=== PATIENT | male | born 1980 | race Caucasian/White ===

== ENCOUNTER 2017-02-14 11:57 | Emergency (ER) | payer BC, SELFPAY | END 2017-02-14 14:14 | disposition home or self-care (01) | PROVIDERS: Emergency Provider Nurse Practitioner Family; Family Provider Nurse Practitioner Family; Visit Provider Nurse Practitioner Family | DX: R19.7 Diarrhea, unspecified (principal); F17.210 Nicotine dependence, cigarettes, uncomplicated; I10 Essential (primary) hypertension | CPT/HCPCS: 36415; 76700; 80053; 85025; 86704; 86708; 86803; 87340; 87507; 99201 ==

== ENCOUNTER → 2018-04-19 14:25 | Outpatient (CLI) | payer BC, SELFPAY ==
[2018-04-19 15:25] LABS: Basophils % 0.4 % (0.1-2.0); Eosinophils # 0.3 K/mm3 (0.0-0.4); Eosinophils % 2.8 % (0.1-12.0); Hematocrit 49.8 % (42.0-52.0); Hemoglobin 17.3 g/dL (14.1-18.0); Lymphocytes # 2.1 K/mm3 (0.7-4.5); Lymphocytes % 20.5 % (10-50); Mean Corpuscular HGB Conc 34.6 g/dL (31.8-35.4); Mean Corpuscular Hemoglobin 30.1 pg (27.0-31.2); Mean Corpuscular Volume 86.8 fl (80-94); Mean Platelet Volume 8.9 fl (7.4-10.4); Monocytes # 0.7 K/mm3 (0.1-1.0); Monocytes % 6.5 % (1.7-9.3); Neutrophils # 7.1 K/mm3 (1.8-7.8); Neutrophils % 69.8 % (37.0-80.0); Platelet Count 272 K/mm3 (142-424); Red Blood Count 5.74 M/mm3 (4.60-6.20); Red Cell Distribution Width 12.6 % (11.5-17.5); White Blood Count 10.1 K/mm3 (4.8-10.8)
[2018-04-19 15:46] LABS: Alanine Aminotransferase 45 U/L (12-78); Albumin Level 3.9 gm/dL (3.4-5.0); Albumin/Globulin Ratio 1.1 (1.1-1.8); Alkaline Phosphatase 118 U/L (46-116); Anion Gap 14.2 mEq/L (5-15); Aspartate Amino Transferase 16 U/L (15-37); Bilirubin,Total 0.3 mg/dL (0.2-1.0); Blood Urea Nitrogen 12 mg/dL (7-18); Calcium 8.9 mg/dL (8.5-10.1); Carbon Dioxide 26 mmol/L (21.0-32.0); Chloride 105 mmol/L (98-107); Cholesterol 203 mg/dL (140-200); Estimated Glomerular Filt Rate 85 ml/min (>60); Free Thyroxine Index 3.2 ug/dL (5.93-13.13); GFR (African American) 102 ML/MIN (>60); Globulin 3.4 gm/dl (1.3-3.2); Glucose 109 mg/dL (74-106); HDL Cholesterol 29 mg/dL (27-67); Phosphorous 3.3 mg/dL (2.4-4.9); Potassium 4.2 mmoL/L (3.5-5.1); Sodium 141 mmol/L (136-145); T4 (Thyroxine) 9.2 ug/dl (4.7-13.3); Thyroid Stimulating Hormone 2.12 uIU/ml (0.358-3.740); Total Protein,Serum 7.3 gm/dL (6.4-8.2); Triiodothryronine (T3) Uptake 35 % (31-39)
[2018-04-19 15:49] LABS: Triglycerides 470 mg/dL (30-200)
[2018-04-19 16:11] LABS: Hemoglobin A1C 5.9 % (0.0-7.0)
[2018-04-21 10:53] LABS: Vitamin D 25 Hydroxy 11.8 ng/mL (30.0-100.0)
== END ==
PROVIDERS: Visit Provider Nurse Practitioner Family
DX: I10 Essential (primary) hypertension (principal); R53.83 Other fatigue
CPT/HCPCS: 80053; 80061; 80069; 82652; 83036; 84436; 84443; 84479; 85025

== ENCOUNTER → 2018-05-15 09:33 | Outpatient (CLI) | payer BC, SELFPAY ==
--- NOTE | 2018-05-15 09:35 | CA_ITS ---
PROCEDURE: 2-D M-mode and color Doppler study INDICATIONS FOR THE TEST: Chest pain X COPD Heart Murmur Tobacco SmokingX Palpitations Fatigue Syncope Edema HypertensionXDiabetes Mellitus Rheumatic Fever SOBXDOE ObesityXHyperlipidemiaX Family History HD Additional History ABN EKG,TACHYCARDIA PATIENT INFORMATION HEIGHT: 69 WEIGHT:271 GENDER: Male B/P:147/87 2-D/M-MODE INTERPRETATION: 2-D MEASUREMENTS OBSERVED VALUES IN CMS Right Ventricular Dimension (RVDd) 1.8 Interventricular Septum (Thickness)(IVsd) 1.0 Left Ventricular Internal Dimensions(LVIDd) 5.2 Left Ventricular Posterior Wall (Thickness)(LVPWd) 1.2 Aortic Root 3.4 Aortic Cusp Separation 2.1 Left Atrial Dimensions (LAD) 3.2 2D 1. Left atrium is normal size, left ventricle is normal size, there is no concentric left ventricular hypertrophy, visually estimated ejection fraction of 55% with no regional wall motion abnormality. 2. The right atrium and right ventricle are normal size and contractility. 3. The aortic, mitral and tricuspid valve are grossly normal. 4. The pulmonic valve is poorly visualized. 5. No significant pericardial effusion noted. DOPPLER INTERROGATION: Doppler interrogation of the aortic, mitral and tricuspid valvular presence of mild mitral and tricuspid regurgitation, tricuspid regurgitation jet velocity is inadequate for calculation of the right ventricular systolic pressure, diastolic parameters are within normal range. CONCLUSION: 1. Normal left ventricular size, preserved left ventricular systolic function, visually estimated ejection fraction of 55% with no regional wall motion abnormality, diastolic parameters are within normal range. 2. Mild mitral and tricuspid regurgitation 3. No significant pericardial effusion noted.
== END ==
PROVIDERS: PCP Nurse Practitioner Family; Visit Provider Internal Medicine
DX: R94.31 Abnormal electrocardiogram [ECG] [EKG] (principal); R07.9 Chest pain, unspecified; R06.02 Shortness of breath; E78.5 Hyperlipidemia, unspecified; R05 Cough; I10 Essential (primary) hypertension; Z82.49 Family history of ischemic heart disease and other diseases of the circulatory system
CPT/HCPCS: 93017; 93306

== ENCOUNTER → 2018-06-21 07:10 | Outpatient (CLI) | payer BC, SELFPAY ==
--- NOTE | 2018-06-21 07:12 | NM_ITS ---
SPECT MYOCARDIAL PERFUSION SCAN, REST AND STRESS: EXERCISE STRESS: [facility] REVIEW QGS EF AND WALL MOTION EVALUATION: QPS - PERFUSION EVALUATION: HISTORY: Chest pain, HTN, Abnormal EKG, Abnormal GXT, Tobacco use PROCEDURE: Rest imaging performed after administration of10.44 millicuries Tc MIBI. Dose administered at7:25 a.m., with imaging thereafter. Stress imaging was then performed [id number] minutes of exercise stress. The patient achieved a heart [id number] with projected heart rate of156 . Resting BP137/83 with stress 218/80. At maximum exercise stress,32.9 millicuries Tc MIBI administered at9:10 a.m. with [id number] minutes thereafter. FINDINGS: Perfusion Evaluation: The single slice spect images as well as the [facility] bull's-eye data summary were reviewed. Wall Motion and Ejection Fraction Evaluation: Gated SPECT review and analysis used to evaluate these features. There is a 51 % left ventricular ejection fraction. There seems to be good wall motion Uniform myocardial activity at both stress and rest IMPRESSION: No scintigraphic evidence of exercise-induced myocardial ischemia with normal ejection fraction and normal wall motion
--- NOTE | 2018-06-21 08:11 | HMH.ITSHM ---
Current Home Medications as stated by this patient Byron Figueroa or group sales representative. []ATORVASTATIN LOSARTAN ASA CARVEDILOL
== END ==
PROVIDERS: PCP Nurse Practitioner Family; Visit Provider Internal Medicine
DX: I10 Essential (primary) hypertension (principal); R06.02 Shortness of breath; R94.39 Abnormal result of other cardiovascular function study
CPT/HCPCS: 78452; 93017; A9502

== ENCOUNTER → 2018-12-18 12:05 | Outpatient (CLI) | payer BC, SELFPAY ==
[2018-12-18 12:08] LABS: Microscopic, Urine URINE MICROSCOPIC (MICROSCOPIC)
[2018-12-18 12:28] LABS: Basophils % 0.3 % (0.1-2.0); Eosinophils # 0.3 K/mm3 (0.0-0.4); Eosinophils % 2.9 % (0.1-12.0); Hematocrit 50.7 % (42.0-52.0); Hemoglobin 16.8 g/dL (14.1-18.0); Lymphocytes # 2.3 K/mm3 (0.7-4.5); Lymphocytes % 24.3 % (10-50); Mean Corpuscular Hemoglobin 29.6 pg (27.0-31.2); Mean Corpuscular Volume 89.5 fl (80-94); Mean Platelet Volume 8.6 fl (7.4-10.4); Monocytes # 0.6 K/mm3 (0.1-1.0); Monocytes % 6.9 % (1.7-9.3); Neutrophils # 6.1 K/mm3 (1.8-7.8); Neutrophils % 65.6 % (37.0-80.0); Platelet Count 284 K/mm3 (142-424); Red Blood Count 5.67 M/mm3 (4.60-6.20); Red Cell Distribution Width 12.6 % (11.5-17.5); White Blood Count 9.3 K/mm3 (4.8-10.8)
[2018-12-18 12:34] LABS: Appearance,Urine CLEAR (Clear); Bilirubin,Urine Negative (Negative); Blood, Urine TRACE-I (Negative); Color,Urine YELLOW (Yellow); Glucose,Urine (UA) Negative (Negative); Ketones,Urine Negative (Negative); Leukocyte Esterase,Urine Negative (Negative); Nitrate,Urine Negative (Negative); PH,Urine 5.5 (5.0-8.5); Protein,Urine Negative (Negative); Specific Gravity, Urine 1.025 (1.005-1.030); Urobilinogen,Urine 0.2 EU/dl (0.2)
[2018-12-18 13:04] LABS: Squamous Epithelial Cell,Urine Occasional #/hpf (0-5); WBC,Urine Occasional #/hpf (0-3)
[2018-12-18 13:39] LABS: Anion Gap 13.5 mEq/L (5-15); Blood Urea Nitrogen 15 mg/dL (7-18); Calcium 8.9 mg/dL (8.5-10.1); Carbon Dioxide 28 mmol/L (21.0-32.0); Chloride 105 mmol/L (98-107); Estimated Glomerular Filt Rate 84 ml/min (>60); GFR (African American) 102 ML/MIN (>60); Glucose 110 mg/dL (74-106); Potassium 4.5 mmoL/L (3.5-5.1); Sodium 142 mmol/L (136-145)
== END ==
PROVIDERS: Visit Provider Surgery
DX: K43.2 Incisional hernia without obstruction or gangrene (principal)
CPT/HCPCS: 36415; 80048; 81001; 85025

== ENCOUNTER 2019-10-15 21:09 | Emergency (ER) | payer BC, SELFPAY ==
[2019-10-15 21:18] VITALS: BP 193/101; PULSE 94; RESP 18; TEMP 37.1; O2SAT 97; BMI 39.4
--- NOTE | 2019-10-15 21:26 | CT_ITS ---
PROCEDURE: CT ABDOMEN PELVIS W CON CLINICAL INDICATION: left sided abd pain Left-sided abdominal pain COMPARISON: CT CT ABDOMEN PELVIS W CON from 12/05/2018 TECHNIQUE: IV Contrast: 75ML OPTIRAY 350 Oral Contrast None Axial images obtained with sagittal and coronal reformats. All CT scans at the facility use one or more dose reduction, viz: automated exposure control, ma/kV adjustment per patient size (including targeted exams where dose is matched to indication, i.e. head), or iterative reconstruction technique. FINDINGS: LOWER THORAX: No acute finding ABDOMEN & PELVIS: The liver, spleen adrenal glands pancreas, and kidneys have an unremarkable appearance. No renal or ureteral calculi. No intestinal obstruction or free air. Mild amount of retained colonic feces. No evidence of appendicitis. There are postsurgical changes with an anastomosis at the sigmoid colon region.. Postsurgical changes of the anterior abdominal wall. There are few scattered colonic diverticula but no evidence of diverticulitis. No acute bony findings. There is a lucent lesion involving the ilium on the right at approximately 13 mm not significantly changed. Intramedullary kisha is present in the right femur. There are mild osteoarthritic changes of the hips IMPRESSION: 1. No acute finding. 2. Mild amount of retained colonic feces with postsurgical changes of the sigmoid colon and a few scattered diverticula but no evidence of diverticulitis. Dictated by: Rui White MD 10/16/2019 06:30 Rui White MD in [place] 10/16/2019 06:30
--- NOTE | 2019-10-15 21:26 | PC.NURSE ---
pt consumed oral contrast. rad notified
[2019-10-15 21:34] LABS: Chloride 106 mmol/L (98-107)
[2019-10-15 21:35] LABS: Basophils % 0.4 % (0.1-2.0); Eosinophils # 0.3 K/mm3 (0.0-0.4); Eosinophils % 2.9 % (0.1-12.0); Hematocrit 48.7 % (42.0-52.0); Hemoglobin 16.8 g/dL (14.1-18.0); Lymphocytes # 3.4 K/mm3 (0.7-4.5); Lymphocytes % 29.9 % (10-50); Mean Corpuscular HGB Conc 34.4 g/dL (31.8-35.4); Mean Corpuscular Hemoglobin 30.9 pg (27.0-31.2); Mean Platelet Volume 8.2 fl (7.4-10.4); Microscopic, Urine URINE MICROSCOPIC (MICROSCOPIC); Monocytes # 0.6 K/mm3 (0.1-1.0); Monocytes % 5.1 % (1.7-9.3); Neutrophils % 61.8 % (37.0-80.0); Platelet Count 263 K/mm3 (142-424); Potassium 4.1 mmoL/L (3.5-5.1); Red Blood Count 5.42 M/mm3 (4.60-6.20); Red Cell Distribution Width 12.9 % (11.5-17.5); Sodium 142 mmol/L (136-145); White Blood Count 11.4 K/mm3 (4.8-10.8)
[2019-10-15 21:37] LABS: Alanine Aminotransferase 48 U/L (12-78); Amylase 60 U/L (30-110); Anion Gap 13.1 mEq/L (5-15); Aspartate Amino Transferase 36 U/L (17-59); Blood Urea Nitrogen 15 mg/dl (9-20); Carbon Dioxide 27 mmol/L (22.0-30.0); Creatinine Clearance Estimated 177 mL/min (50-200); Estimated Glomerular Filt Rate 84 ml/min (>60); GFR (African American) 101 ML/MIN (>60)
[2019-10-15 21:38] LABS: Albumin Level 4.3 g/dl (3.5-5.0); Albumin/Globulin Ratio 1.3 (1.1-1.8); Alkaline Phosphatase 115 U/L (38-126); Bilirubin,Total 0.4 mg/dl (0.2-1.3); Calcium 9.5 mg/dl (8.4-10.2); Globulin 3.3 g/dL (1.3-3.2); Glucose 103 mg/dl (74-100); Lipase 99 U/L (23-300); Total Protein,Serum 7.6 g/dl (6.3-8.2)
[2019-10-15 21:42] LABS: Appearance,Urine CLEAR (Clear); Bilirubin,Urine Negative (Negative); Blood, Urine TRACE-I (Negative); Color,Urine YELLOW (Yellow); Glucose,Urine (UA) Negative (Negative); Ketones,Urine Negative (Negative); Leukocyte Esterase,Urine Negative (Negative); Nitrate,Urine Negative (Negative); Protein,Urine Negative (Negative); Specific Gravity, Urine 1.025 (1.005-1.030); Urobilinogen,Urine 0.2 EU/dl (0.2)
[2019-10-15 21:54] LABS: Squamous Epithelial Cell,Urine Occasional #/hpf (0-5); WBC,Urine Occasional #/hpf (0-3)
--- NOTE | 2019-10-15 23:14 | HMH.EDNVD ---
ED Disposition Clinical Impression: Abdominal pain Qualifiers: Abdominal location: left upper quadrant Qualified Code(s): R10.12 - Left upper quadrant pain Disposition: Home, Self-Care Condition on Discharge: Good Instructions: DI for Acute Abdomen Additional Instructions: call pcp for follow up Referrals: Ashish Figueroa APRN [Primary Care Provider] - - Critical Care Critical Care Time: No Attestation: On 10/15/19, the high probability of a clinically significant, sudden or life threatening deterioration of the following system(s) required my full and direct attention, intervention and personal management. The time I documented below is in addition to time spent performing reported procedures but includes the following listed in this critical care notation. Medical Decision Making - Medical Records Medical records reviewed: Yes: I reviewed the patient's medical records. - Sam Inquiry Pt receiving controlled substance: No Vital Signs: 10/15/19 21:18 10/15/19 23:30 Temperature 98.8 F Temperature Source Oral Pulse Rate [Left] 94 H 77 Respiratory Rate 18 18 Blood Pressure [Right Arm] 193/101 H 165/100 H Blood Pressure Mean [Right Arm] 131 121 Blood Pressure Source [Right Arm] Automatic Cuff Blood Pressure Position [Right Arm] Sitting Sitting 02 Sat by Pulse Oximetry 97 97 Oxygen Delivery Method Room Air Room Air - Lab Data Lab results reviewed: Yes: I reviewed the patient's lab results. Lab Results 10/15/19 21:23: WBC 11.4 H, RBC 5.42, Hgb 16.8, Hct 48.7, MCV 90.0, MCH 30.9, MCHC 34.4, RDW 12.9, Plt Count 263, MPV 8.2, Neut % (Auto) 61.8, Lymph % (Auto) 29.9, Fannin % (Auto) 5.1, Eos % (Auto) 2.9, Baso % (Auto) 0.4, Neut # (Auto) 7.0, Lymph # (Auto) 3.4, Fannin # (Auto) 0.6, Eos # (Auto) 0.3, Baso # (Auto) 0.0 10/15/19 21:23: Sodium 142, Potassium 4.1, Chloride 106, Carbon Dioxide 27, Anion Gap 13.1, BUN 15, Creatinine 1.00, Estimated Creat Clear 177, Estimated GFR 84, Est GFR ( Amer) 101, Glucose 103 H, Calcium 9.5, Total Bilirubin 0.4, AST 36, ALT 48, Alkaline Phosphatase 115, Total Protein 7.6, Albumin 4.3, Globulin 3.3 H, Albumin/Globulin Ratio 1.3, Amylase 60, Lipase 99 10/15/19 21:23: Urine Color Yellow, Urine Appearance Clear, Urine pH 6.0, Ur Specific [place] 1.025, Urine Protein Negative, Urine Glucose (UA) Negative, Urine Ketones Negative, Urine Blood Trace-i, Urine Nitrate Negative, Urine Bilirubin Negative, Urine Urobilinogen 0.2, Ur Leukocyte Esterase Negative, Urine WBC Occasional, Ur Squamous Epith Cells Occasional Result diagrams: 10/15/19 21:23 10/15/19 21:23 Orders (Tests/Meds): ED MEDICATIONS Generic Name Dose Route Start Last Admin Trade Name Freq PRN Reason Stop Dose Admin Sodium Chloride 1,000 mls @ 999 mls/hr 10/15/19 21:30 10/15/19 21:29 Sod Chlor 0.9% 1000ml Bag IV 10/15/19 22:30 999 mls/hr .Q1H1M GRACY Administration Discontinued Medications Generic Name Dose Route Start Last Admin Trade Name Freq PRN Reason Stop Dose Admin Diatrizoate Meglum/Diatrizoate Sod 30 ml 10/15/19 21:25 10/15/19 21:29 Gastrografin 66%-10% 30ml PO 10/15/19 21:26 30 ml ONCE ONE Administration Ioversol 75 ml 10/15/19 23:09 10/15/19 23:09 Rad-Optiray 350 100ml Vial IV 10/15/19 23:10 75 ml ONCE ONE Administration Protocol Ketorolac Tromethamine 30 mg 10/15/19 21:28 10/15/19 21:29 Toradol 30mg/Ml Vial IV 10/15/19 21:29 30 mg ONCE ONE Administration Ondansetron HCl 4 mg 10/15/19 21:28 10/15/19 21:29 Zofran 4mg/2ml Vial IV 10/15/19 21:29 4 mg ONCE ONE Administration Sodium Chloride 10 ml 10/15/19 23:09 10/15/19 23:09 Rad-Saline Flush 10ml Syringe IV 10/15/19 23:10 10 ml ONCE ONE Administration ORDERS Category Date Time Status CT abdomen pelvis w con Stat Cat Scan 10/15/19 21:26 Taken - CT Data CT Scan: Abdomen, Pelvis Time Received: 23:[address] Reviewed: Yes: I have viewed the radiologist's interpr
[2019-10-15 23:30] VITALS: BP 165/100; PULSE 77; RESP 18; O2SAT 97
[2019-10-15 23:45] VITALS: BP 183/106; PULSE 77; RESP 17; TEMP 37.1; O2SAT 95
== END 2019-10-15 23:50 | disposition home or self-care (01) ==
PROVIDERS: Emergency Provider Emergency Medicine; PCP Nurse Practitioner Family
DX: R10.12 Left upper quadrant pain (principal); E78.5 Hyperlipidemia, unspecified; I10 Essential (primary) hypertension; F17.210 Nicotine dependence, cigarettes, uncomplicated; Z79.899 Other long term (current) drug therapy
CPT/HCPCS: 74177; 80053; 81001; 82150; 83690; 85025; 96365; 96375; 99283; J2405; Q9967

== ENCOUNTER → 2020-02-20 13:25 | Outpatient (CLI) | payer BC, SELFPAY ==
--- NOTE | 2020-02-20 13:25 | CA_ITS ---
APPROVED REPORT EXAM: Comprehensive 2D, Doppler, and color-flow Echocardiogram Vegetable Cook: Vanesa Madera CRT Ht: 5 ft 10 in Wt: 290lbs BSA: 2.44 BP: 140/90 mmHg Indications: CP, smoker, HTN, SOB, obesity, hyperlipidemia, ABN EKG, tachycardia 2D Dimensions LVOT 2.29 cm (M/F) 1.5-2.5 M-Mode Dimensions RVDd 2.89 cm (0.9-2.6) LA Diam 3.59 cm (1.9-4.0) LVDd 3.42 cm (3.5-5.7) Ao Diam 3.39 cm (2.0-3.7) LVDs 2.49 cm (3.5-5.7) IVSd 1.17 cm (0.6-1.1) PWd 0.88 cm (0.6-1.1) EF (Teich) 54.10% FS 27.20% EDV (Teich) 48.10 mL ESV (Teich) 22.10 mL LV Diastology E Decel Time 177.00 (160-240 msec) E/A Ratio 0.8 MED E' 9.70 (< 7 cm/sec) E'/MED E' Ratio 7.07 (>14) LAT E' 9.90 (<10 cm/sec) E/LAT E' Ratio 6.93 (>14) Mitral Valve MV E Max Dago. 69.00 (40-130 cm/s) MV A Velocity 85.00 (40-130 cm/s) E/A Ratio 0.80 MV Decel. Time 177.00 (160-240 ms) MV PHT 52.00 ms Left Ventricle Left atrium is mildly enlarged, left ventricle is normal size, mild concentric left ventricular hypertrophy, visually estimated ejection fraction 55% with no regional wall motion abnormality, grade 1 diastolic dysfunction seen without tissue Doppler evidence of raise left atrial pressure. Right Ventricle Right atrium and right ventricle are mildly enlarged with normal contractility. Aortic Valve Aortic valve is minimally thickened and fibrosed, there is no aortic stenosis or aortic insufficiency. Mitral Valve Mitral valve is grossly normal, there is no mitral stenosis, there is mild mitral regurgitation. Tricuspid Valve Tricuspid valve is grossly normal, there is mild tricuspid regurgitation, tricuspid regurgitation jet velocity is inadequate for calculation of the right ventricular systolic pressure. Pulmonic Valve Pulmonic valve is poorly visualized. Great Vessels Aortic root is normal size. Pericardium No significant pericardial effusion noted. Conclusion 1. Mild biatrial enlargement, normal left ventricular size, mild concentric left ventricular hypertrophy, visually estimated ejection fraction 55% with no regional wall motion abnormality, grade 1 diastolic dysfunction seen without tissue Doppler evidence of raise left atrial pressure. 2. Mildly enlarged right ventricle with normal contractility. 3. Mild mitral and tricuspid regurgitation. 4. No significant pericardial effusion noted. Electronically signed by : Mamadou Reynoso, 02/21/2020 12:50:24
== END ==
PROVIDERS: PCP Nurse Practitioner Family; Visit Provider Physician Assistant
DX: R06.02 Shortness of breath (principal); R00.0 Tachycardia, unspecified; R94.31 Abnormal electrocardiogram [ECG] [EKG]; E78.2 Mixed hyperlipidemia; I10 Essential (primary) hypertension; Z72.0 Tobacco use
CPT/HCPCS: 93306

== ENCOUNTER → 2020-03-08 10:00 | Outpatient (CLI) | payer BC, SELFPAY ==
[2020-03-08 11:09] LABS: Chloride 104 mmol/L (98-107); Sodium 140 mmol/L (136-145)
[2020-03-08 11:12] LABS: Blood Urea Nitrogen 18 mg/dl (9-20); Estimated Glomerular Filt Rate 94 ml/min (>60); GFR (African American) 114 ML/MIN (>60)
[2020-03-08 11:13] LABS: Carbon Dioxide 28 mmol/L (22.0-30.0); Glucose 109 mg/dl (74-100)
== END ==
PROVIDERS: Visit Provider Physician Assistant
DX: R06.02 Shortness of breath (principal); R94.31 Abnormal electrocardiogram [ECG] [EKG]; I10 Essential (primary) hypertension; E78.2 Mixed hyperlipidemia; Z72.0 Tobacco use
CPT/HCPCS: 36415; 80048

== ENCOUNTER → 2020-03-20 17:23 | Outpatient (CLI) | payer BC, SELFPAY ==
[2020-03-20 18:37] LABS: Alanine Aminotransferase 45 U/L (12-78); Albumin Level 4.2 g/dl (3.5-5.0); Albumin/Globulin Ratio 1.4 (1.1-1.8); Alkaline Phosphatase 100 U/L (38-126); Anion Gap 13.1 mEq/L (5-15); Aspartate Amino Transferase 34 U/L (17-59); Basophils # 0.1 K/mm3 (0-0.2); Basophils % 0.5 % (0.1-2.0); Bilirubin,Total 0.5 mg/dl (0.2-1.3); Blood Urea Nitrogen 13 mg/dl (9-20); Calcium 9.4 mg/dl (8.4-10.2); Carbon Dioxide 25 mmol/L (22.0-30.0); Chloride 107 mmol/L (98-107); Chol/HDL Ratio 7.3 (1-3.5); Cholesterol 211 mg/dl (140-200); Eosinophils # 0.4 K/mm3 (0.0-0.4); Eosinophils % 4.1 % (0.1-12.0); Estimated Glomerular Filt Rate 94 ml/min (>60); GFR (African American) 114 ML/MIN (>60); Globulin 2.9 g/dL (1.3-3.2); Glucose 131 mg/dl (74-100); HDL Cholesterol 29 mg/dl (40-60); Hematocrit 46.1 % (42.0-52.0); Hemoglobin 15.2 g/dL (14.1-18.0); Lymphocytes # 2.3 K/mm3 (0.7-4.5); Lymphocytes % 27.4 % (10-50); Mean Corpuscular HGB Conc 32.9 g/dL (31.8-35.4); Mean Corpuscular Hemoglobin 29.5 pg (27.0-31.2); Mean Corpuscular Volume 89.6 fl (80-94); Mean Platelet Volume 8.8 fl (7.4-10.4); Monocytes # 0.5 K/mm3 (0.1-1.0); Monocytes % 5.7 % (1.7-9.3); Neutrophils # 5.3 K/mm3 (1.8-7.8); Neutrophils % 62.3 % (37.0-80.0); Platelet Count 263 K/mm3 (142-424); Potassium 4.1 mmoL/L (3.5-5.1); Red Blood Count 5.14 M/mm3 (4.60-6.20); Red Cell Distribution Width 13.2 % (11.5-17.5); Sodium 141 mmol/L (136-145); Total Protein,Serum 7.1 g/dl (6.3-8.2); White Blood Count 8.5 K/mm3 (4.8-10.8)
[2020-03-20 18:49] LABS: Direct LDL Cholesterol 41.22 mg/dL (100-129)
[2020-03-20 18:52] LABS: Triglycerides 837 mg/dl (30-150)
[2020-03-20 18:54] LABS: 25-OH Vitamin D, Total 13.2 ng/mL (30-100)
[2020-03-20 18:55] LABS: T4 (Thyroxine) 8.4 ug/dl (5.53-11.0)
[2020-03-20 19:06] LABS: Creatinine,Urine Random 249 mg/dL (Not Estab.)
[2020-03-20 19:09] LABS: Thyroid Stimulating Hormone 0.93 uIU/mL (0.465-4.68)
[2020-03-20 19:11] LABS: Microalbumin/Creatinine Ratio 3.4
[2020-03-20 19:22] LABS: Hemoglobin A1C 5.9 % (4.0-6.0)
== END ==
PROVIDERS: Visit Provider Nurse Practitioner Family
DX: E11.9 Type 2 diabetes mellitus without complications (principal); E78.5 Hyperlipidemia, unspecified; I10 Essential (primary) hypertension; E55.9 Vitamin D deficiency, unspecified; Z79.899 Other long term (current) drug therapy
CPT/HCPCS: 80053; 80061; 82043; 82306; 82570; 83036; 84436; 84443; 85025

== ENCOUNTER → 2020-04-30 14:15 | Outpatient (CLI) | payer BC, SELFPAY ==
[2020-04-30 18:20] LABS: Coronavirus 19 IgG Antibody Negative (Negative); Coronavirus 19 IgM Antibody Negative (Negative)
== END ==
PROVIDERS: Visit Provider Nurse Practitioner Family
DX: Z01.818 Encounter for other preprocedural examination (principal); Z20.822 Contact with and (suspected) exposure to COVID-19
CPT/HCPCS: 36415; 86328

== ENCOUNTER → 2020-05-01 20:11 | Outpatient (CLI) | payer BC, SELFPAY | PROVIDERS: PCP Nurse Practitioner Family; Visit Provider Nurse Practitioner Family | DX: G47.33 Obstructive sleep apnea (adult) (pediatric) (principal); R09.02 Hypoxemia; I10 Essential (primary) hypertension; R06.83 Snoring; E66.9 Obesity, unspecified | CPT/HCPCS: 95810 ==

== ENCOUNTER → 2020-06-03 10:21 | Outpatient (POV) | payer BC, SELFPAY | PROVIDERS: Visit Provider Otolaryngology | DX: Z00.00 Encounter for general adult medical examination without abnormal findings (principal) ==

== ENCOUNTER 2020-06-22 18:48 | Emergency (ER) | payer BC, SELFPAY ==
[2020-06-22 18:49] VITALS: BP 153/88; PULSE 99; RESP 16; TEMP 37.3; O2SAT 98; BMI 41.5
[2020-06-22 19:19] VITALS: BP 000/00; PULSE 85; RESP 22; TEMP 38.9; O2SAT 99
[2020-06-22 19:21] VITALS: BP 151/108; PULSE 94; RESP 16; TEMP 36.5; O2SAT 93; BMI 41.5
--- NOTE | 2020-06-22 19:49 | HMH.EDUTC ---
[facility] [place] Clinical Impression: Need for Tdap vaccination Laceration of left thumb without complication Qualifiers: Encounter type: initial encounter Qualified Code(s): S61.012A - Laceration without foreign body of left thumb without damage to nail, initial encounter Disposition: Home, Self-Care Condition on Discharge: Good Instructions: DI for Laceration Repair Additional Instructions: Keep clean and dry. Follow up at [facility] or PCP to have sutures removed in 7-10 days. Referrals: Ashish Figueroa APRN [Primary Care Provider] - Time of Disposition: 19:53 Medical Decision Making - Sam Inquiry Pt receiving controlled substance: No Vital Signs: 06/22/20 18:49 06/22/20 19:19 06/22/20 19:21 Temperature 99.2 F 102.0 F H 97.7 F Temperature Source Oral Rectal Oral Pulse Rate 85 Pulse Rate [Radial] 99 H 94 H Respiratory Rate 16 22 16 Blood Pressure 000/00 L Blood Pressure [Right Arm] 153/88 H 151/108 H Blood Pressure Mean [Right Arm] 109 122 Blood Pressure Position [Right Arm] Sitting Sitting 02 Sat by Pulse Oximetry 98 93 L Oxygen Delivery Method Room Air Room Air Orders (Tests/Meds): ED MEDICATIONS Discontinued Medications Generic Name Dose Route Start Last Admin Trade Name Freq PRN Reason Stop Dose Admin Lidocaine HCl 5 ml 06/22/20 19:33 06/22/20 19:35 Lidocaine 1% 10ml Mdv IJ 06/22/20 19:34 5 ml ONCE ONE Administration [facility] [place] - General Stated complaint: AO 06/22 @1800 lac to L Thumb Time Seen by Provider: 06/22/20 19:49 Mode of Arrival: Ambulatory Source of Information: Patient Limitations: No Limitations Description of Symptoms (Recalled from Triage Doc. by RN): Laceration to left thumb. Pt stated he was doing dishes and cut his hand on knife HEENT Symptoms (Recalled from RN notes): No Resp Symptoms (Recalled from RN notes): No Skin Symptoms (Recalled from RN notes): Yes MS Symptoms (Recalled from RN notes): No Functional Status (Recalled from RN notes): wnl - History of Present Illness Provider Complaint: Laceration to left thumb just [employer]. Was washing dishes and grabbed a knife. Sensation and movement are intact. Onset (ago): hour(s) (2) Location: left, upper extremity Relieving factors: none Exacerbating factors: none Treatments prior to arrival: none - Related Data Previous Rx's Medication Instructions Recorded cetirizine 10 mg tablet 10 mg PO DAILY #30 tab 02/13/20 hydrochlorothiazide 25 mg tablet 25 mg PO DAILY #30 tab 02/18/20 carvedilol 25 mg tablet 25 mg PO BID #60 tab 03/10/20 atorvastatin 10 mg tablet 10 mg PO DAILY #30 tab 03/24/20 fluticasone propionate 50 1 spray INTRANASAL DAILY #9.9 ml 03/24/20 mcg/actuation nasal spray,suspension aspirin 81 mg tablet,delayed See Rx Instructions .ROUTE 05/09/20 release .COMPLEX #30 tablet sildenafil 50 mg tablet 50 mg PO DAILY PRN #10 tab 05/12/20 ergocalciferol (vitamin D2) 1,250 See Rx Instructions .ROUTE 06/06/20 mcg (50,000 unit) capsule .COMPLEX #4 cap Allergies Allergy/AdvReac Type Severity Reaction Status Date / Time No Known Allergies Allergy Verified 06/22/20 19:26 - Worker's Comp Is this a Worker's Comp case?: No [facility] History - Hepatitis A Screen Drug use history?: No High risk sexual behaviors?: No History of sexually transmitted infection?: No Currently employed?: No Childcare worker?: No Do you have indoor plumbing?: Yes Do you have electricity?: Yes Attestation statement:: This patient has been screened for Hepatitis A risk factors. I have reviewed the patient's past medical history: Yes Medical History: Reports:: Hyperlipidemia, Hypertension, MRSA Denies:: Cancer, Diabetes Mellitus Type 1, Diabetes Mellitus Type 2, Internal Pacemaker, Seizures Other Medical History: Denies: Blood Transfusion Reaction Comment: chronic back pain, diverticulosis, rotator cuff tear Other Surgeries: Yes: Colonoscopy, Colon Resection, Hernia Repair, Other. No: Pacemaker
== END 2020-06-22 20:14 | disposition home or self-care (01) ==
PROVIDERS: Emergency Provider Physician Assistant; PCP Nurse Practitioner Family
DX: S61.012A Laceration without foreign body of left thumb without damage to nail, initial encounter (principal); Z23 Encounter for immunization; W26.0XXA Contact with knife, initial encounter; Y92.010 Kitchen of single-family (private) house as the place of occurrence of the external cause; E78.5 Hyperlipidemia, unspecified; I10 Essential (primary) hypertension; F17.210 Nicotine dependence, cigarettes, uncomplicated
CPT/HCPCS: 12001; 90471; 90715; 96372; 99202; G0463

== ENCOUNTER → 2020-12-09 09:08 | Outpatient (CLI) | payer BC, SELFPAY ==
--- NOTE | 2020-12-09 09:11 | MR_ITS ---
PROCEDURE INFORMATION: Exam: MR Right Upper Extremity Joint Without Contrast; Shoulder Exam date and time: 12/09/2020 9:11 AM Age: 40 years old Clinical indication: Pain; Shoulder; Right; Prior surgery; Surgery date: 6+ months; Additional info: Impingement syndrome of right shoulder. Prior HX sugery x5yrs ago. No injury or trauma. Pain and weakness in shoulder [id number]. No prior. TECHNIQUE: Imaging protocol: MR of the Right upper extremity without contrast. Exam focused on the shoulder. [id number] 05/23/2015 4:50 PM FINDINGS: Limitations: Motion artifact. Bones and cartilage: A benign bone island is present in the humeral neck. The undersurface of the acromion has a normal curvature, consistent with a type II acromion. There is no acute fracture or dislocation. No aggressive bone lesions are present. Joint spaces: There are multiloculated simple appearing cysts located superior to the acromioclavicular joint and acromion that likely arise from the acromioclavicular joint favored to represent ganglion or synovial cysts. The cysts measure up to 1.8 x 1 x 0.5 cm (AP, ML, CC), as measured on series 3/image 4 and series 12/image 10. There is mild primary osteoarthritis of the acromioclavicular joint. Glenoid labrum: Assessment of the labrum is limited without a grossly apparent tear. Supraspinatus tendon: Low-grade partial-thickness tearing involves the articular surface of the supraspinatus tendon. Moderate tendinosis involves the adjacent intact supraspinatus tendon. There is a large fluid collection tracking along the supraspinatus musculotendinous junction. This cystic collection enlarges as it extends medially. The cyst involves up to a region measuring 1 x 6.5 x 1.5 cm (AP, ML, CC), as measured on series 6/image 18 and series 5 images 9 -10. Infraspinatus tendon: Low-grade partial-thickness tearing involves the articular surface of the infraspinatus tendon. Mild tendinosis involves the remainder of the infraspinatus tendon. Subscapularis tendon: Mild tendinosis involves the subscapularis tendon. Teres minor tendon: No tear or significant tendinosis involves the teres minor tendon. Tendon of biceps brachii: Mild tendinosis involves the intra-articular portion of the long head of the biceps tendon. Glenohumeral ligaments: Unremarkable. Muscles: The rotator cuff musculature demonstrates no significant edema or atrophy. Soft tissues: Unremarkable. Lymph nodes: Axillary lymph nodes are increased in number but not pathologically enlarged. This would not be unusual if the patient had a recent vaccination. IMPRESSION: 1. Large fluid collection tracking along the supraspinatus musculotendinous junction enlarging medially and involving up to a 1 x 6.5 x 1.5 cm region. 2. Low-grade partial-thickness tearing of the supraspinatus and tendon articular surfaces, superimposed on tendinosis. 3. Simple appearing ganglion or synovial cysts superior to the acromioclavicular joint and acromion measuring up to 1.8 x 1 x 0.5 cm. 4. Mild tendinosis of the subscapularis and long head of the biceps tendons. 5. 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
== END ==
PROVIDERS: PCP Nurse Practitioner Family; Visit Provider Orthopaedic Surgery Adult Reconstructive Orthopaedic Surgery
DX: M75.41 Impingement syndrome of right shoulder (principal)
CPT/HCPCS: 73221

== ENCOUNTER 2021-02-11 15:02 | Emergency (ER) | payer BC, SELFPAY ==
[2021-02-11 15:30] VITALS: BP 126/105; PULSE 95; RESP 18; TEMP 36.8; O2SAT 97; BMI 43.0
[2021-02-11 16:07] LABS: UTC Influenza A Antigen Negative (Negative); UTC Influenza B Antigen Negative (Negative)
--- NOTE | 2021-02-11 16:15 | HMH.EDUTC ---
[facility] [place] Dis[place] Clinical Impression: Bronchitis Sinusitis Qualifiers: Sinusitis location: unspecified location Chronicity: unspecified Qualified Code(s): J32.9 - Chronic sinusitis, unspecified Disposition: Home, Self-Care Condition on Discharge: Good Instructions: Sinusitis, DI for Sinusitis, Azithromycin Additional Instructions: ? Start antibiotic today. Be sure to complete entire prescription even if feeling better ? Monitor temp. Tylenol every 4 hours as needed and / or ibuprofen every 6 hours as needed ( As long as your primary care physician has told you that it ok to take both. For fever/aches/pains ER if no less than 101 despite Tylenol or Motrin ? Humidifier/vaporizer or hot steamy shower *Monitor Temp, Over the counter Motrin or Tylenol as directed/as needed Tylenol every 4 hours and Motrin every 6 hours (as long as your family doctor has told you that you can take it) for fever or pain. and straight to ER if unable to lower temp less than 101.0 after medication given *Warm salt water gargles may help to soothe the throat *Throat Lozenges *Warm fluids like tea with honey may help to soothe the throat *Sleep elevated *Humidifier/Vaporizer Follow up IMMEDIATELY for new or worsening symptoms or no Noticeable improvement over the next 48-72 hours. 911 for difficulty breathing or swallowing You were tested for today for COVID19 your test result should be back in the next 24-48 hours, you may Check your results on the [facility] My health portal if you have trouble viewing your results or logging on you may call You was given a handout with instructions for Self Quarantine and Self isolation for while you wait on test results and what to do if they are positive If you are positive the Health Dept will be contacting you also Make sure to take your Vitamins Vit. C Vit D and Zinc if you can take them Prescriptions: Azithromycin [Z-Charly 250mg Tab] 250 mg PO DIRECTED #6 tab Transmission Status: Received by [facility] Referrals: Ashish Figueroa APRN [Primary Care Provider] - Medical Decision Making - Sam Inquiry Pt receiving controlled substance: No Sam was queried for this patient: No Vital Signs: 02/11/21 15:30 02/11/21 17:52 Temperature 98.2 F 98.2 F Temperature Source Oral Pulse Rate 95 H Pulse Rate [Left Brachial] 95 H Respiratory Rate 18 18 Blood Pressure 126/105 H Blood Pressure [Left Arm] 126/105 H Blood Pressure Mean [Left Arm] 112 Blood Pressure Source [Left Arm] Automatic Cuff Blood Pressure Position [Left Arm] Sitting 02 Sat by Pulse Oximetry 97 Oxygen Delivery Method Room Air - Lab Data Lab results reviewed: Yes: I reviewed the patient's lab results. Lab Results 02/11/21 15:54: Influenza Type A Ag Negative, Influenza Type B Ag Negative Orders (Tests/Meds): ED MEDICATIONS Discontinued Medications Generic Name Dose Route Start Last Admin Trade Name Freq PRN Reason Stop Dose Admin Methylprednisolone Sodium Succinate 125 mg 02/11/21 17:54 02/11/21 17:57 Methylprednisolone Sod Succ 125mg Vial IM 02/11/21 17:55 125 mg ONCE ONE Administration ORDERS Category Date Time Status Covid-19 Nasal PCR ([facility]) Routine Lab 02/11/21 15:35 Received [facility] [place] HPI - General Stated complaint: sore throat, cough, REIS, congestion Time Seen by Provider: 02/11/21 16:15 Mode of Arrival: Ambulatory Source of Information: Patient Limitations: No Limitations Description of Symptoms (Recalled from Triage Doc. by RN): PATIENT C/O FEVER, CHILLS, BODY ACHES, FATIGUE, COUGH, NASAL DRAINAGE, AND CHEST CONGESTION X 1 WEEK HEENT Symptoms (Recalled from RN notes): Yes Resp Symptoms (Recalled from RN notes): Yes Skin Symptoms (Recalled from RN notes): No MS Symptoms (Recalled from RN notes): No Functional Status (Recalled from RN notes): WNL - History of Present Illness Provider Complaint: Patient states that he was recently seen and treated by his PCP b
--- NOTE | 2021-02-11 16:23 | XR_ITS ---
PROCEDURE INFORMATION: Exam: XR Chest Exam date and time: 02/11/2021 4:23 PM Age: 40 years old Clinical indication: Smoker's cough; Patient HX: Cough/congestion x 2 weeks TECHNIQUE: Imaging protocol: XR of the chest. Views: 2 views. COMPARISON: MR SHOULDER RT WO CON 12/09/2020 9:33 AM FINDINGS: Lungs: Unremarkable. No consolidation. Pleural spaces: Unremarkable. No pleural effusion. No pneumothorax. Heart/Mediastinum: Unremarkable. No cardiomegaly. Bones/joints: Unremarkable. IMPRESSION: No acute findings.
[2021-02-11 17:52] VITALS: BP 126/105; PULSE 95; RESP 18; TEMP 36.8; O2SAT 97
== END 2021-02-11 18:05 | disposition home or self-care (01) ==
PROVIDERS: Emergency Provider Nurse Practitioner; PCP Nurse Practitioner Family
DX: J20.9 Acute bronchitis, unspecified (principal); J32.9 Chronic sinusitis, unspecified; I10 Essential (primary) hypertension; E78.5 Hyperlipidemia, unspecified; F17.210 Nicotine dependence, cigarettes, uncomplicated; Z79.899 Other long term (current) drug therapy
CPT/HCPCS: 71046; 87804; 96372; 99202; C9803; G0463; U0003; U0005

== ENCOUNTER → 2021-05-27 07:39 | Outpatient (CLI) | payer BC, SELFPAY ==
--- NOTE | 2021-05-27 07:41 | CA_ITS ---
APPROVED REPORT EXAM: Comprehensive 2D, Doppler, and color-flow Echocardiogram [employer] Cooking Operator: Vanesa Madera CRT Ht: 5 ft 10 in Wt: 300lbs BSA: 2.48 BP: 140/80 mmHg Indications: Chest Pain, Shortness of Breath, Obesity, Hyperlipidemia, Hypertension/HDD, abn ekg, Covid 2020 2D Dimensions LVOT 2.31 cm (M/F) 1.5-2.5 LA Volume 27.30 mL LA Volume Index 11.00 mL/m2 (M/F) 16-34 M-Mode Dimensions RVDd 2.65 cm (0.9-2.6) LA Diam 3.52 cm (1.9-4.0) LVDd 5.88 cm (3.5-5.7) Ao Diam 4.63 cm (2.0-3.7) LVDs 4.34 cm (3.5-5.7) IVSd 1.00 cm (0.6-1.1) PWd 0.68 cm (0.6-1.1) EF (Teich) 50.60% FS 26.20% EDV (Teich) 171.90 mL TAPSE 2.51 (<1.7) ESV (Teich) 84.90 mL LV Diastology E Decel Time 150.00 (160-240 msec) E/A Ratio 0.87 MED E' 6.80 (< 7 cm/sec) MED A' 9.50 cm/s E'/MED E' Ratio 8.44 (>14) LAT E' 8.90 (<10 cm/sec) LAT A' 6.30 cm/s E/LAT E' Ratio 6.45 (>14) Aortic Valve AO Peak GR. 5.60 mmHg Mitral Valve MV E Max Dago. 57.00 (40-130 cm/s) MV A Velocity 66.00 (40-130 cm/s) E/A Ratio 0.87 MV Decel. Time 150.00 (160-240 ms) MV PHT 44.00 ms Pulmonary Valve PV Peak Velocity 156.00 (50-150 cm/s) Tricuspid Valve TR P. Velocity 164.00 cm/s RAP Estimate 10.00 mmHg RVSP 20.70 mmHg Left Ventricle Left atrium is mildly enlarged, left ventricle is normal size, left ventricle wall thickness is upper limit of the normal there is preserved left ventricular systolic function, visually estimated ejection fraction 55% with no regional wall motion abnormality, Doppler evidence of impaired LV relaxation. Right Ventricle Right atrium and right ventricle are normal size and contractility. Aortic Valve Aortic valve is grossly normal, there is no aortic stenosis or aortic insufficiency. Mitral Valve Mitral valve grossly normal, trace mitral regurgitation. Tricuspid Valve Tricuspid valve grossly normal, there is trace tricuspid regurgitation, tricuspid regurgitation jet velocity is inadequate for calculation of the right ventricular systolic pressure. Pulmonic Valve Pulmonic valve is poorly visualized. Great Vessels Aortic root is normal size. Inferior vena cava is normal size with normal inspiratory collapse. Pericardium No significant pericardial effusion noted. Conclusion 1. Normal left ventricular size preserved left ventricular systolic function, visually estimated ejection fraction 55% with no regional wall motion abnormality, Doppler evidence of impaired LV relaxation seen. 2. Trace mitral and tricuspid regurgitation. 3. No significant pericardial effusion. 4. Inferior vena cava is normal size with normal inspiratory collapse. Electronically signed by : Mamadou Reynoso MD 05/27/2021 10:14:58
[2021-05-27 09:20] LABS: Basophils # 0.1 K/mm3 (0-0.2); Basophils % 0.8 % (0.1-2.0); Eosinophils # 0.3 K/mm3 (0.0-0.4); Eosinophils % 3.2 % (0.1-12.0); Hematocrit 49.8 % (42.0-52.0); Hemoglobin 16.7 g/dL (14.1-18.0); Lymphocytes # 2.6 K/mm3 (0.7-4.5); Lymphocytes % 26.2 % (10-50); Mean Corpuscular HGB Conc 33.5 g/dL (31.8-35.4); Mean Corpuscular Hemoglobin 30.2 pg (27.0-31.2); Mean Corpuscular Volume 90.2 fl (80-94); Mean Platelet Volume 9.1 fl (7.4-10.4); Monocytes # 0.6 K/mm3 (0.1-1.0); Monocytes % 5.8 % (1.7-9.3); Neutrophils # 6.4 K/mm3 (1.8-7.8); Neutrophils % 64.1 % (37.0-80.0); Platelet Count 278 K/mm3 (142-424); Red Blood Count 5.52 M/mm3 (4.60-6.20); Red Cell Distribution Width 13.5 % (11.5-17.5)
[2021-05-27 10:23] LABS: Alanine Aminotransferase 61 U/L (12-78); Alkaline Phosphatase 98 U/L (38-126); Anion Gap 9.6 mEq/L (5-15); Aspartate Amino Transferase 34 U/L (17-59); Bilirubin,Direct 0.1 mg/dl (0.0-0.4); Bilirubin,Indirect 0.3 mg/dL (0.0-0.9); Bilirubin,Total 0.4 mg/dl (0.2-1.3); Bilirubin,Unconjugated 0.3 mg/dL (0.0-1.1); Blood Urea Nitrogen 14 mg/dl (9-20); Calcium 8.9 mg/dl (8.4-10.2); Carbon Dioxide 31 mmol/L (22.0-30.0); Chloride 103 mmol/L (98-107); Chol/HDL Ratio 5.6 (1-3.5); Cholesterol 173 mg/dl (140-200); Estimated Glomerular Filt Rate 108 ml/min (>60); GFR (African American) 130 ML/MIN (>60); Glucose 137 mg/dl (74-100); HDL Cholesterol 31 mg/dl (40-60); Potassium 4.6 mmoL/L (3.5-5.1); Sodium 139 mmol/L (136-145); Total Protein,Serum 6.4 g/dl (6.3-8.2)
[2021-05-27 10:34] LABS: Direct LDL Cholesterol 67.81 mg/dL (100-129)
[2021-05-27 10:35] LABS: Triglycerides 431 mg/dl (30-150)
[2021-05-27 10:40] LABS: Free T4 (Free Thyroxine) 1.08 ng/dl (0.78-2.19)
[2021-05-27 10:54] LABS: Thyroid Stimulating Hormone 1.23 uIU/mL (0.465-4.68)
== END ==
PROVIDERS: PCP Nurse Practitioner Family; Visit Provider Nurse Practitioner Family
DX: R06.09 Other forms of dyspnea (principal); I10 Essential (primary) hypertension; E78.2 Mixed hyperlipidemia; Z72.0 Tobacco use
CPT/HCPCS: 36415; 80048; 80061; 80076; 84439; 84443; 85025; 93306

== ENCOUNTER → 2021-10-05 07:09 | Outpatient (CLI) | payer BC, SELFPAY ==
[2021-10-05 20:18] LABS: Hemoglobin A1C 7.5 % (4.0-6.0)
== END ==
PROVIDERS: PCP Emergency Medicine; Visit Provider Emergency Medicine
DX: R73.03 Prediabetes (principal)
CPT/HCPCS: 83036

== ENCOUNTER → 2022-03-19 16:53 | Outpatient (CLI) | payer BC, SELFPAY ==
--- NOTE | 2022-03-19 16:56 | MR_ITS ---
PROCEDURE INFORMATION: Exam: MR Left Upper Extremity Joint Without Contrast; Shoulder Exam date and time: 03/19/2022 5:05 PM Age: 41 years old Clinical indication: Pain; Shoulder; Left; Additional info: Left shoulder pain TECHNIQUE: Imaging protocol: Magnetic resonance imaging of the Left upper extremity without contrast. Exam focused on the shoulder. COMPARISON: UEOTJW/OLT MRI-UP EXT OTH THN JNT W/O-LT 11/17/2016 8:06 AM FINDINGS: Bones and cartilage: There is marrow edema in the distal clavicle without linear fracture. No discrete erosive change. This could be bone bruising, or inflammatory change. No similar finding elsewhere. No significant effusion. Type 2 acromion process. Joint spaces: See Bones and cartilage finding. Glenoid labrum: Unremarkable. No evidence of tear. Supraspinatus tendon: Unremarkable. No evidence of tear. Infraspinatus tendon: There is limited tendinopathy distal fibers of the supraspinatus and infraspinatus tendons are mildly edematous. No discrete tear. Subscapularis tendon: Unremarkable. No evidence of tear. Teres minor tendon: Unremarkable. No evidence of tear. Tendon of biceps brachii: Unremarkable. No evidence of tear. Glenohumeral ligaments: Unremarkable. Muscles: Unremarkable. Soft tissues: Unremarkable. IMPRESSION: 1. There is marrow edema in the distal clavicle without linear fracture. No discrete erosive change to confirm osteolysis. This could be bone bruising, or inflammatory change. No similar finding elsewhere. No significant effusion. 2. There is limited tendinopathy distal fibers of the supraspinatus and infraspinatus tendons are mildly edematous. No discrete tear.
== END ==
PROVIDERS: PCP Emergency Medicine; Visit Provider Orthopaedic Surgery Adult Reconstructive Orthopaedic Surgery
DX: M25.512 Pain in left shoulder (principal)
CPT/HCPCS: 73221

== ENCOUNTER → 2022-03-31 12:51 | Outpatient (POV) | payer BC, SELFPAY | PROVIDERS: Visit Provider Specialist/Technologist | DX: Z00.00 Encounter for general adult medical examination without abnormal findings (principal) ==

== ENCOUNTER → 2022-05-19 15:26 | Outpatient (CLI) | payer BC, SELFPAY ==
[2022-05-19 15:42] LABS: Basophils # 0.1 K/mm3 (0-0.2); Basophils % 0.7 % (0.1-2.0); Eosinophils # 0.2 K/mm3 (0.0-0.4); Hematocrit 48.3 % (42.0-52.0); Hemoglobin 15.9 g/dL (14.1-18.0); Lymphocytes # 3.3 K/mm3 (0.7-4.5); Lymphocytes % 27.6 % (10-50); Mean Corpuscular Hemoglobin 29.6 pg (27.0-31.2); Mean Corpuscular Volume 89.9 fl (80-94); Mean Platelet Volume 8.6 fl (7.4-10.4); Monocytes # 0.6 K/mm3 (0.1-1.0); Monocytes % 4.8 % (1.7-9.3); Neutrophils # 7.8 K/mm3 (1.8-7.8); Neutrophils % 64.8 % (37.0-80.0); Platelet Count 306 K/mm3 (142-424); Red Blood Count 5.37 M/mm3 (4.60-6.20)
[2022-05-19 16:24] LABS: Alanine Aminotransferase 16 U/L (12-78); Albumin Level 4.2 g/dl (3.5-5.0); Albumin/Globulin Ratio 1.8 (1.1-1.8); Alkaline Phosphatase 84 U/L (38-126); Amylase 48 U/L (30-110); Anion Gap 11.3 mEq/L (5-15); Aspartate Amino Transferase 19 U/L (17-59); Bilirubin,Total 0.4 mg/dl (0.2-1.3); Blood Urea Nitrogen 19 mg/dl (9-20); Calcium 8.9 mg/dl (8.4-10.2); Carbon Dioxide 29 mmol/L (22.0-30.0); Chloride 100 mmol/L (98-107); Estimated Glomerular Filt Rate 83 ml/min (>60); GFR (African American) 100 ML/MIN (>60); Globulin 2.3 g/dL (1.3-3.2); Glucose 90 mg/dl (74-100); Lipase 210 U/L (23-300); Potassium 4.3 mmoL/L (3.5-5.1); Sodium 136 mmol/L (136-145); Total Protein,Serum 6.5 g/dl (6.3-8.2)
== END ==
PROVIDERS: PCP Emergency Medicine; Visit Provider Surgery
DX: Z87.19 Personal history of other diseases of the digestive system (principal); R10.9 Unspecified abdominal pain
CPT/HCPCS: 36415; 80053; 82150; 83690; 85025

== ENCOUNTER → 2022-05-21 15:37 | Outpatient (CLI) | payer BC, SELFPAY ==
--- NOTE | 2022-05-21 15:40 | MR_ITS ---
PROCEDURE INFORMATION: Exam: MR Left Lower Extremity Joint Without Contrast; Hip Exam date and time: 05/21/2022 4:05 PM Age: 41 years old Clinical indication: Pain; Hip; Left; Additional info: Left hip pain. Disloacted 2008. Fall x 3 weeks ago. TECHNIQUE: Imaging protocol: Magnetic resonance imaging of the left lower extremity joint without contrast. Exam focused on the hip. COMPARISON: CT ABDOMEN PELVIS W CON 10/15/2019 10:57 PM FINDINGS: Limitations: Motion artifact - mild. Bones/joints: No acute fracture. Moderate to severe degenerative changes of LEFT hip joint, characterized by joint space narrowing, osteophytes, cartilage denudation, acetabular cyst/edema. No dislocation. Susceptibility artifact within RIGHT femur related to hardware. Labrum: Irregularity/signal changes of superior labrum with associated small paralabral cyst. TENDONS: Tendons of iliopsoas group: Intact. Tendons of medial compartment of thigh: Intact. Tendons of lateral rotators of hip: Intact. Tendons of gluteal group: Intact. Muscles: Unremarkable. Soft tissues: Unremarkable. IMPRESSION: 1. 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 2. Labral tear.
== END ==
PROVIDERS: PCP Emergency Medicine; Visit Provider Orthopaedic Surgery Adult Reconstructive Orthopaedic Surgery
DX: M25.552 Pain in left hip (principal)
CPT/HCPCS: 73721

== ENCOUNTER 2022-05-25 07:22 | Day surgery (SDC) | payer BC, SELFPAY ==
[2022-05-24 10:55] VITALS: BMI 33.0
[2022-05-25] VITALS (10 sets, daily range): BP systolic 131–146; BP diastolic 73–94; PULSE 69–81; RESP 12–18; TEMP 36.1–36.8; O2SAT 93–99
[2022-05-25 08:24] LABS: POC Glucose,Bedside 88 (70-110)
--- NOTE | 2022-05-25 08:33 | P.PN_ITS ---
[facility] Disclaimer: The information contained in this section may have been updated after the patient was seen, as this information can be updated by other users. Medical History Abnormal EKG Abnormal stress test Chest pain Chronic eustachian tube dysfunction Cough Deviated nasal septum Diabetes Diverticulitis Erectile dysfunction Family history of coronary artery disease Gastroenteritis Hearing Loss History of diverticulitis History of femur fracture HLD (hyperlipidemia) HTN (hypertension) MEDINA (obstructive sleep apnea) Prediabetes SOB (shortness of breath) Tinnitus Tympanosclerosis Ventral hernia Surgical History History of colon resection History of colonoscopy History of knee surgery History of mandibular surgery History of shoulder surgery Family History Other Family history of CVA Family history of heart disease Social History Smoking Status: Current every day smoker tobacco type: cigarettes packs per day: 1 second hand exposure: Yes alcohol intake: never counseling provided: none substance use type: marijuana current occupational status: employed and other Travel in the last 8 weeks: None household members: family housing: house current occupation: [employer] current occupational exposures/hazards: No caffeine: Yes [facility] Anesthesia Checklist Patient Identification Patient Identification: Arm Band Structural Data Admitted From: Home Planned Operative Procedure/s: BMT Consent for Planned Operative Procedure(s) Verified: Yes Verified Documents: Surgical Consent and History and Physical NPO Status Verified Time NPO: 00:00 Additional verifications Anesthesia Reactions: No Hx Blood Transfusions: No Blood Transfusion Reaction: No Airway Assessment C-Spine Mobility Assessed: Yes TMJ Mobility Assessed: Yes Dentition: Good Dentition Neurological Assessment Level of Consciousness: Awake and Alert Anesthesia Plan Anesthesia Risk discussed: Yes Anesthesia Plan: Verified ASA Class: II Anesthesia Type: General
--- NOTE | 2022-05-25 09:57 | EXP.OP.NOTE ---
Date of procedure: 05/25/22 Pre-op Diagnosis:: chronic otitis media Post-op Diagnosis:: same Procedure performed:: bilateral myringotomy with t-tubes Surgeon:: Rene Beavers MD Anesthesia: LMA Estimated blood loss (mL): 0 Operative findings:: bilateral serous effusions Operative note:: The patient was brought to the OR and laid?in supine position. LMA anesthesia was induced. Patient was prepped and draped in the usual fashion. First in the left ear, myringotomy was made in the anterior-inferior quadrant. A serous?effusion was suctioned from the middle ear space. T-tube was placed and then ear?drops was instilled into the ear. Then, I turned my attention towards the right ear. Again, a myringotomy was made in the anterior-inferior quadrant. Serous ?effusion was suctioned from the middle ear space.?T-tube was placed and then?ear?drops was instilled into the ear. Patient was then turned back over to anesthesia to be awoken. Condition: stable Disposition: PACU Complications:: none
--- NOTE | 2022-05-25 10:02 | EXP.ANES.I ---
[facility] Anesthesia Record Part I Anesthesia Record I Intake, IV Amount: 500 Estimated blood loss (mL): 0 Urine output (mL): 0 Blood Pressure: 145/85 SaO2: 99 Pulse Rate: 81 Respiratory Rate: 12 Temperature: 97.8 F Patient is:: Awake and Stable Stable to PACU at:: 10:00
[2022-05-25 10:21] LABS: POC Glucose,Bedside 79 (70-110)
--- NOTE | 2022-05-26 07:16 | EXP.ANES.II ---
[facility] Anesthesia Record Part II Anesthesia Record Part II Discharge Time: 10:30 Destination: Surgical Day Care (OP Surgery) PACU nurse assessment reviewed?: Yes Patient Condition:: Good Anesthesia Complications:: None Swallowing reflex intact?: Yes Cyanosis?: No Blood Pressure: 139/94 Pulse Rate: 74 Temperature: 98 F Mental Status: Alert & Oriented Pain level:: 0 Nausea and/or vomitting:: None Intake, IV Amount: 0
[2022-05-26 07:17] VITALS: BP 139/94; PULSE 74; TEMP 36.6
== END 2022-05-25 10:56 | disposition home or self-care (01) ==
PROVIDERS: PCP Emergency Medicine; Visit Provider Student in an Organized Health Care Education/Training Program
PROC: (CPT 69436; principal; 2022-05-25 09:10)
DX: H65.23 Chronic serous otitis media, bilateral (principal); F17.210 Nicotine dependence, cigarettes, uncomplicated; E11.9 Type 2 diabetes mellitus without complications
CPT/HCPCS: 69436; 82962

== ENCOUNTER → 2022-05-28 10:17 | Outpatient (CLI) | payer BC, SELFPAY ==
--- NOTE | 2022-05-28 10:18 | CT_ITS ---
FINAL REPORT TECHNIQUE: Thin section axial images were obtained through the abdomen after intravenous contrast. Reconstruction images were obtained from the axial data. Exam was performed using dose reduction techniques. CLINICAL HISTORY: abdominal pain COMPARISON: 10/16/2019 FINDINGS: The lung bases are clear. The liver is homogeneous. The gallbladder is present. The spleen, adrenal glands, and pancreas are unremarkable. There is no hydronephrosis or solid renal mass. Abdominal GI tract is without acute abnormality or obstruction. There is no abdominal lymphadenopathy or ascites. The prostate is unremarkable. The appendix is normal. There is no pelvic lymphadenopathy or ascites. No acute osseous abnormalities identified. No acute osseous degenerative disease of the left hip. IMPRESSION: No CT evidence of acute intra-abdominal or intrapelvic abnormality. Reviewed, Interpreted and Dictated by Kena Márquez MD Transcribed by Shilpa Serrano Authenticated and [facility]
== END ==
PROVIDERS: PCP Emergency Medicine; Visit Provider Surgery
DX: R10.9 Unspecified abdominal pain (principal); Z87.19 Personal history of other diseases of the digestive system
CPT/HCPCS: 74177; Q9967

== ENCOUNTER → 2022-06-02 14:43 | Outpatient (CLI) | payer BC, SELFPAY ==
[2022-06-02 14:47] LABS: Microscopic, Urine URINE MICROSCOPIC (MICROSCOPIC)
[2022-06-02 19:31] LABS: Appearance,Urine CLEAR (Clear); Bilirubin,Urine Negative (Negative); Blood, Urine Negative (Negative); Color,Urine YELLOW (Yellow); Glucose,Urine (UA) Negative (Negative); Ketones,Urine Negative (Negative); Leukocyte Esterase,Urine Negative (Negative); Nitrate,Urine Negative (Negative); PH,Urine 5.5 (5.0-8.5); Protein,Urine Negative (Negative); Specific Gravity, Urine >= 1.030 (1.005-1.030); Urobilinogen,Urine 0.2 EU/dl (0.2)
== END ==
PROVIDERS: PCP Emergency Medicine; Visit Provider Surgery
DX: R10.31 Right lower quadrant pain (principal)
CPT/HCPCS: 81001

== ENCOUNTER 2022-06-11 08:59 | Emergency (ER) | payer BC, SELFPAY ==
[2022-06-11 09:05] VITALS: BP 161/88; PULSE 68; O2SAT 100
[2022-06-11 09:06] VITALS: BP 161/88; PULSE 60; RESP 18; TEMP 36.5; O2SAT 100; BMI 32.8
--- NOTE | 2022-06-11 09:07 | PC.NURSE ---
SHERWIN BALES at
--- NOTE | 2022-06-11 09:14 | HMH.EDGENADL ---
Discharge Plan Disposition Patient Disposition: Home, Self-Care Condition: Good Prescriptions Prescriptions: New ondansetron 4 mg tablet,disintegrating 4 mg PO Q8H PRN (Reason: nausea and vomiting) 4 Days Qty: 12 0RF No Action loratadine 10 mg tablet 10 mg PO DAILY PRN (Reason: allergies) albuterol sulfate [ProAir HFA] 90 mcg/actuation HFA aerosol inhaler 2 puff INHALATION ONCE PRN (Reason: allergies) sildenafil [Viagra] 50 mg tablet 50 mg PO DAILY PRN (Reason: sexual activity) Qty: 30 0RF Rx Instructions: administer 30 minutes to 4 hours before activity bupropion HCl 150 mg tablet sustained-release 12 hr See Rx Instructions .ROUTE .COMPLEX Qty: 60 2RF Rx Instructions: TAKE ONE TABLET BY MOUTH 2 TIMES A DAY polyethylene glycol 3350 [Miralax] 17 gram/dose powder 17 g PO DAILY Qty: 510 0RF lactulose 10 gram/15 mL solution 10 g PO DAILY Qty: 450 0RF Ozempic 1 mg/dose (4 mg/3 mL) pen injector 2 mg SQ WEEKLY Qty: 3 2RF Rx Instructions: weekly for 4 weeks lisinopril 10 mg tablet 10 mg PO DAILY Qty: 90 3RF hydrochlorothiazide 25 mg tablet 25 mg PO DAILY Qty: 90 3RF Rx Instructions: TAKE ONE TABLET BY MOUTH ONCE A DAY (DME) blood-glucose meter Kit See Rx Instructions .ROUTE .MEDSULY Qty: 1 0RF Rx Instructions: check Blood Sugar first thing of the morning atorvastatin 10 mg tablet See Rx Instructions .ROUTE .COMPLEX Rx Instructions: TAKE ONE TABLET BY MOUTH AT BEDTIME (DME) OneTouch Ultra Test Strip See Rx Instructions .ROUTE .COMPLEX Rx Instructions: TEST SUGAR ONCE DAILY OR DIRECTED aspirin [Adult Aspirin Regimen] 81 mg tablet,delayed release (DR/EC) 81 mg PO DAILY mupirocin 2 % ointment 1 applic topical BID metoprolol succinate [Toprol XL] 25 mg tablet extended release 24 hr 50 mg PO DAILY fluticasone propionate 50 mcg/actuation spray,suspension See Rx Instructions .ROUTE .COMPLEX Rx Instructions: USE 1 SPRAY IN EACH NOSTRIL ONCE A DAY ofloxacin 0.3 % drops 5 drp otic (ear) BID 7 Days Qty: 5 3RF Referrals Follow up/Referrals: Elmer Cleary MD [Primary Care Provider] - See instructions Activity Restrictions/Add. Instructions Additional Instructions/Restrictions: At this time was felt you are safe to be discharged home. If new or worsening symptoms please do not hesitate to return the emergency department. If symptoms persist beyond 5 days at current state please follow-up with your family doctor for continued evaluation. Clinical Impressions Clinical Impression: Vomiting Instructions Patient Instructions: DI for Acute Abdominal Pain Discharge ED Provider: Oleg Baird General Adult HPI General Chief complaint: Abdominal Pain Stated complaint: Vomitting,Chills Time Seen by Provider: 06/11/22 09:14 Mode of Arrival: Ambulatory Source of Information: Patient Limitations: No Limitations Description of Symptoms (Recalled from ER Triage Doc. by RN): Presents via POV d/t n/v and epigastric pain since 05:00 am. +chills/sweats. +constipation, Last BM yesterday, however hard consistency. Hx of colon resection in 2014 due to diverticulitis and hernia repair. Pt saw PCP Wed, given Lactulose and Miralax without improvement. History of Present Illness HPI narrative: Patient is a 41-year-old male with past medical history of diverticulitis status post colonic resection, hypertension who presents emergency department for evaluation of vomiting. Onset was acute, occurring since earlier this morning. Patient's symptoms were not tolerable at his job so he presents here for continued evaluation. He denies significant pain however has some epigastric discomfort. He presented to his PCP earlier this week where everything was fine . Patient has been intermittently constipated and has had success with lactulose. Last bowel movement this morning. Vomiti
[2022-06-11 09:22] LABS: Basophils # 0.1 K/mm3 (0-0.2); Basophils % 0.3 % (0.1-2.0); Chloride 104 mmol/L (98-107); Eosinophils # 0.1 K/mm3 (0.0-0.4); Eosinophils % 0.8 % (0.1-12.0); Hematocrit 54.1 % (42.0-52.0); Lymphocytes % 12.6 % (10-50); Mean Corpuscular HGB Conc 33.5 g/dL (31.8-35.4); Mean Corpuscular Hemoglobin 29.5 pg (27.0-31.2); Mean Platelet Volume 8.7 fl (7.4-10.4); Monocytes # 0.7 K/mm3 (0.1-1.0); Monocytes % 4.5 % (1.7-9.3); Neutrophils % 81.8 % (37.0-80.0); Platelet Count 320 K/mm3 (142-424); Red Blood Count 6.14 M/mm3 (4.60-6.20); White Blood Count 15.8 K/mm3 (4.8-10.8)
[2022-06-11 09:23] LABS: Potassium 3.7 mmoL/L (3.5-5.1); Sodium 140 mmol/L (136-145)
[2022-06-11 09:25] LABS: Alanine Aminotransferase 25 U/L (12-78); Alkaline Phosphatase 111 U/L (38-126); Anion Gap 15.7 mEq/L (5-15); Aspartate Amino Transferase 32 U/L (17-59); Carbon Dioxide 24 mmol/L (22.0-30.0); Lipase 191 U/L (23-300)
--- NOTE | 2022-06-11 09:25 | ECG_ITS ---
APPROVED REPORT Exam: Resting ECG HR:54 bpm ECG Measurements Heart Rate 54 AXES MA 154 P -2 QRSd 108 QRS 60 QT 430 T 49 QTc 417 Conclusion SINUS BRADYCARDIA BORDERLINE ECG UNCONFIRMED REPORT Electronically signed by : Eron Ramso MD 06/12/2022 08:34:41
[2022-06-11 09:26] LABS: Albumin Level 4.7 g/dl (3.5-5.0); Albumin/Globulin Ratio 1.6 (1.1-1.8); Calcium 9.1 mg/dl (8.4-10.2); Glucose 111 mg/dl (74-100); Total Protein,Serum 7.7 g/dl (6.3-8.2)
[2022-06-11 09:30] LABS: Coronavirus 19, PCR Not Detected (NotDetected); Influenza A, PCR Not Detected (NotDetected); Influenza B, PCR Not Detected (NotDetected)
[2022-06-11 09:31] VITALS: BP 131/61; PULSE 56; O2SAT 95
[2022-06-11 09:31] LABS: Blood Urea Nitrogen 18 mg/dl (9-20); Creatinine Clearance Estimated 160 mL/min (50-200); Estimated Glomerular Filt Rate 93 ml/min (>60); GFR (African American) 113 ML/MIN (>60)
[2022-06-11 09:32] LABS: MANUAL DIFFERENTIAL MANUAL DIFFERENTIAL (MANUAL DIFF)
--- NOTE | 2022-06-11 09:38 | PC.NURSE ---
Slight improvement with Zofran. Pillow provided. Pt will hold on GI cocktail until able to tolerate.
[2022-06-11 09:40] LABS: Troponin I < 0.01 ng/ml (0.00-0.034)
[2022-06-11 09:48] LABS: Lymphocytes % 17 % (10-50); Monocytes % 2 % (2-9); Neutrophils % 81 % (42-76); Platelet Estimate Normal; Total Cells Counted 100
[2022-06-11 09:49] LABS: RBC Morphology Normal
[2022-06-11 09:52] LABS: Hemoglobin 18.1 g/dL (14.1-18.0)
[2022-06-11 10:00] VITALS: BP 126/61; PULSE 84; O2SAT 99
--- NOTE | 2022-06-11 10:12 | PC.NURSE ---
Vomiting post GI cocktail. notified. VO Phenergan 12.5mg IV per Dr. Baird.
[2022-06-11 10:31] VITALS: BP 156/87; PULSE 65; O2SAT 95
[2022-06-11 10:50] VITALS: BP 156/87; PULSE 58; RESP 16; TEMP 36.6; O2SAT 96
== END 2022-06-11 10:53 | disposition home or self-care (01) ==
PROVIDERS: Emergency Provider Emergency Medicine; PCP Emergency Medicine
DX: R10.13 Epigastric pain (principal); R11.2 Nausea with vomiting, unspecified; I10 Essential (primary) hypertension; R00.1 Bradycardia, unspecified; F17.210 Nicotine dependence, cigarettes, uncomplicated; E78.5 Hyperlipidemia, unspecified
CPT/HCPCS: 80053; 83605; 83690; 84484; 85007; 85025; 93005; 96361; 96374; 96375; 99285; C9803; J2405; U0003; U0005

== ENCOUNTER 2022-06-13 18:48 | Emergency (ER) | payer BC, SELFPAY ==
--- NOTE | 2022-06-13 18:57 | ECG_ITS ---
APPROVED REPORT Exam: Resting ECG HR:107 bpm ECG Measurements Heart Rate 107 AXES WV 156 P 82 QRSd 99 QRS 85 QT 324 T 76 QTc 386 Conclusion SINUS TACHYCARDIA ABNORMAL RHYTHM ECG UNCONFIRMED REPORT Electronically signed by : Eron Ramos MD 06/14/2022 20:34:47
[2022-06-13 18:58] VITALS: BP 119/93; PULSE 110; RESP 20; TEMP 37.7; O2SAT 98; BMI 26.4
--- NOTE | 2022-06-13 19:05 | CT_ITS ---
PROCEDURE INFORMATION: Exam: CT Abdomen And Pelvis With Contrast Exam date and time: 06/13/2022 7:28 PM Age: 41 years old Clinical indication: Abdominal pain; Additional info: Ruq pain TECHNIQUE: Imaging protocol: Computed tomography of the abdomen and pelvis with contrast. Radiation optimization: All CT scans at this facility use at least one of these dose optimization techniques: automated exposure control; mA and/or kV adjustment per patient size (includes targeted exams where dose is matched to clinical indication); or iterative reconstruction. Contrast material: ISOVUE; Contrast volume: 75 ml; Contrast route: IV; REPORTING DATA: Count of CT and Cardiac NM exams in prior 12 months: This patient has received [address] and 0 known cardiac nuclear medicine studies in the 12 months prior to the current study. COMPARISON: CT ABDOMEN PELVIS W CON 05/28/2022 10:27 AM FINDINGS: Liver: Normal. No mass. Gallbladder and bile ducts: No calcified stones. No ductal dilation. Pancreas: Normal enhancement. No ductal dilation. Spleen: No splenomegaly. Adrenal glands: No mass. Kidneys and ureters: No hydronephrosis. Stomach and bowel: Postsurgical changes. No obstruction. No mucosal thickening. Appendix: No evidence of appendicitis. Intraperitoneal space: No significant fluid collection. No free air. Vasculature: Mild atherosclerosis. No abdominal aortic aneurysm. Lymph nodes: No enlarged lymph nodes. Urinary bladder: No acute abnormality. Reproductive: No acute abnormality. Bones/joints: Postprocedural change to the right femur. Scoliosis. No acute fracture. Soft tissues: No soft tissue swelling. IMPRESSION: No acute findings.
[2022-06-13 19:13] LABS: Basophils # 0.1 K/mm3 (0-0.2); Basophils % 0.3 % (0.1-2.0); Eosinophils # 0.2 K/mm3 (0.0-0.4); Hematocrit 52.3 % (42.0-52.0); Hemoglobin 17.7 g/dL (14.1-18.0); Lymphocytes # 3.6 K/mm3 (0.7-4.5); Lymphocytes % 20.7 % (10-50); Mean Corpuscular HGB Conc 33.8 g/dL (31.8-35.4); Mean Corpuscular Hemoglobin 29.3 pg (27.0-31.2); Mean Corpuscular Volume 86.7 fl (80-94); Mean Platelet Volume 8.2 fl (7.4-10.4); Monocytes # 1.2 K/mm3 (0.1-1.0); Monocytes % 6.7 % (1.7-9.3); Neutrophils # 12.3 K/mm3 (1.8-7.8); Neutrophils % 71.3 % (37.0-80.0); Platelet Count 340 K/mm3 (142-424); Red Blood Count 6.04 M/mm3 (4.60-6.20); Red Cell Distribution Width 12.9 % (11.5-17.5); White Blood Count 17.2 K/mm3 (4.8-10.8)
[2022-06-13 19:14] LABS: Chloride 101 mmol/L (98-107); Potassium 3.6 mmoL/L (3.5-5.1); Sodium 135 mmol/L (136-145)
[2022-06-13 19:17] LABS: Alanine Aminotransferase 21 U/L (12-78); Albumin Level 4.4 g/dl (3.5-5.0); Albumin/Globulin Ratio 1.5 (1.1-1.8); Alkaline Phosphatase 103 U/L (38-126); Anion Gap 16.6 mEq/L (5-15); Aspartate Amino Transferase 31 U/L (17-59); Bilirubin,Total 1.3 mg/dl (0.2-1.3); Blood Urea Nitrogen 21 mg/dl (9-20); Carbon Dioxide 21 mmol/L (22.0-30.0); Creatinine Clearance Estimated 102 mL/min (50-200); Estimated Glomerular Filt Rate 67 ml/min (>60); GFR (African American) 81 ML/MIN (>60); Globulin 2.9 g/dL (1.3-3.2); Glucose 106 mg/dl (74-100); Lipase 328 U/L (23-300); Total Protein,Serum 7.3 g/dl (6.3-8.2)
[2022-06-13 19:18] LABS: MANUAL DIFFERENTIAL MANUAL DIFFERENTIAL (MANUAL DIFF)
--- NOTE | 2022-06-13 19:23 | PC.NURSE ---
Pt gone to RAD via wheelchair
[2022-06-13 19:24] LABS: C-Reactive Protein 5.5 mg/L (0-4)
--- NOTE | 2022-06-13 19:32 | PC.NURSE ---
Pt back from RAD
[2022-06-13 19:39] LABS: Lymphocytes % 24 % (10-50); Monocytes % 2 % (2-9); Neutrophils % 74 % (42-76); Nucleated Red Blood Cells 1; RBC Morphology Normal; Total Cells Counted 100
[2022-06-13 19:40] LABS: Platelet Estimate Normal
--- NOTE | 2022-06-13 19:43 | PC.NURSE ---
Lactic and covid test collected and sent to lab. Pt made aware we need to collect urine sample. Pt provided with warm blanket. Call light within reach.
[2022-06-13 19:48] LABS: Coronavirus 19, PCR Not Detected (NotDetected); Influenza A, PCR Not Detected (NotDetected); Influenza B, PCR Not Detected (NotDetected)
[2022-06-13 19:58] LABS: Lactic Acid 0.9 mmol/L (0.7-2.1)
[2022-06-13 20:47] VITALS: BP 121/75; PULSE 87; RESP 20; TEMP 37.2; O2SAT 98
--- NOTE | 2022-06-13 21:23 | HMH.EDGENADL ---
Discharge Plan Disposition Patient Disposition: Home, Self-Care Condition: Fair Prescriptions Prescriptions: New promethazine 25 mg tablet 25 mg PO Q6H PRN (Reason: nausea and vomiting) Qty: 30 0RF famotidine 20 mg tablet 20 mg PO BID Qty: 28 0RF famotidine 20 mg tablet 20 mg PO BID Qty: 28 0RF No Action loratadine 10 mg tablet 10 mg PO DAILY PRN (Reason: allergies) albuterol sulfate [ProAir HFA] 90 mcg/actuation HFA aerosol inhaler 2 puff INHALATION ONCE PRN (Reason: allergies) sildenafil [Viagra] 50 mg tablet 50 mg PO DAILY PRN (Reason: sexual activity) Qty: 30 0RF Rx Instructions: administer 30 minutes to 4 hours before activity bupropion HCl 150 mg tablet sustained-release 12 hr See Rx Instructions .ROUTE .COMPLEX Qty: 60 2RF Rx Instructions: TAKE ONE TABLET BY MOUTH 2 TIMES A DAY polyethylene glycol 3350 [Miralax] 17 gram/dose powder 17 g PO DAILY Qty: 510 0RF lactulose 10 gram/15 mL solution 10 g PO DAILY Qty: 450 0RF Ozempic 1 mg/dose (4 mg/3 mL) pen injector 2 mg SQ WEEKLY Qty: 3 2RF Rx Instructions: weekly for 4 weeks lisinopril 10 mg tablet 10 mg PO DAILY Qty: 90 3RF hydrochlorothiazide 25 mg tablet 25 mg PO DAILY Qty: 90 3RF Rx Instructions: TAKE ONE TABLET BY MOUTH ONCE A DAY (DME) blood-glucose meter Kit See Rx Instructions .ROUTE .MEDSULY Qty: 1 0RF Rx Instructions: check Blood Sugar first thing of the morning atorvastatin 10 mg tablet See Rx Instructions .ROUTE .COMPLEX Rx Instructions: TAKE ONE TABLET BY MOUTH AT BEDTIME (DME) OneTouch Ultra Test Strip See Rx Instructions .ROUTE .COMPLEX Rx Instructions: TEST SUGAR ONCE DAILY OR DIRECTED aspirin [Adult Aspirin Regimen] 81 mg tablet,delayed release (DR/EC) 81 mg PO DAILY mupirocin 2 % ointment 1 applic topical BID metoprolol succinate [Toprol XL] 25 mg tablet extended release 24 hr 50 mg PO DAILY fluticasone propionate 50 mcg/actuation spray,suspension See Rx Instructions .ROUTE .COMPLEX Rx Instructions: USE 1 SPRAY IN EACH NOSTRIL ONCE A DAY ofloxacin 0.3 % drops 5 drp otic (ear) BID 7 Days Qty: 5 3RF ondansetron 4 mg tablet,disintegrating 4 mg PO Q8H PRN (Reason: nausea and vomiting) 4 Days Qty: 12 0RF Referrals Follow up/Referrals: Elmer Cleary MD [Primary Care Provider] - See instructions Clinical Impressions Clinical Impression: Acute epigastric pain Instructions Patient Instructions: DI for Epigastric Pain Discharge ED Provider: Nimesh Salvador General Adult HPI General Chief complaint: Nausea/Vomiting/Diarrhea Stated complaint: Vomitting, Can't Eat, chest tightness Time Seen by Provider: 06/13/22 18:55 Mode of Arrival: Ambulatory Source of Information: Patient Limitations: No Limitations Description of Symptoms (Recalled from ER Triage Doc. by RN): pt to ed c/o epigastric pain, n/v/d. pt states he was seen on tuesday for similar symptoms. pt reports fever since tuesday. History of Present Illness HPI narrative: Patient is a 41-year-old male who presents with epigastric pain, nausea, vomiting. He says that he was seen a couple days ago for similar symptoms but says that his symptoms have persisted and worsened. He states that prior to him keeping any food or liquid down. He says he has been having a fever that has been treating with Tylenol. Denies any diarrhea. He does note some questionable bilious emesis. He says that he does have past surgeries on his abdomen but still has his gallbladder. Pain is mainly in his right upper quadrant and epigastrium and does not radiate into his lower quadrants. Denies any hematuria or dysuria. No chest pain. No shortness of breath. No cough or congestion. Related Data Home Medications Medication Instructions Recorded Confirmed albuterol sulfate 90 mcg/actuation 2 puff inhalation ONCE PRN
== END 2022-06-13 20:49 | disposition home or self-care (01) ==
PROVIDERS: Emergency Provider Student in an Organized Health Care Education/Training Program; PCP Emergency Medicine
DX: R10.13 Epigastric pain (principal); R11.2 Nausea with vomiting, unspecified
CPT/HCPCS: 74177; 80053; 83605; 83690; 85007; 85025; 86140; 93005; 96360; 96374; 99284; 99285; C9803; Q9967; U0003; U0005

== ENCOUNTER → 2022-09-03 15:30 | Outpatient (CLI) | payer BC, SELFPAY ==
[2022-09-03 18:29] LABS: Basophils % 0.1 % (0.1-2.0); Eosinophils # 0.2 K/mm3 (0.0-0.4); Eosinophils % 1.3 % (0.1-12.0); Hematocrit 48.4 % (42.0-52.0); Hemoglobin 15.9 g/dL (14.1-18.0); Lymphocytes # 2.9 K/mm3 (0.7-4.5); Lymphocytes % 24.5 % (10-50); Mean Corpuscular HGB Conc 32.8 g/dL (31.8-35.4); Mean Corpuscular Volume 88.5 fl (80-94); Mean Platelet Volume 8.8 fl (7.4-10.4); Monocytes # 0.8 K/mm3 (0.1-1.0); Monocytes % 6.9 % (1.7-9.3); Neutrophils # 7.9 K/mm3 (1.8-7.8); Neutrophils % 67.2 % (37.0-80.0); Platelet Count 304 K/mm3 (142-424); Red Blood Count 5.47 M/mm3 (4.60-6.20); Red Cell Distribution Width 12.6 % (11.5-17.5); White Blood Count 11.8 K/mm3 (4.8-10.8)
[2022-09-03 18:58] LABS: Alanine Aminotransferase 17 U/L (12-78); Albumin Level 4.4 g/dl (3.5-5.0); Alkaline Phosphatase 93 U/L (38-126); Anion Gap 13.5 mEq/L (5-15); Aspartate Amino Transferase 21 U/L (17-59); Bilirubin,Total 0.5 mg/dl (0.2-1.3); Blood Urea Nitrogen 20 mg/dl (9-20); Calcium 8.7 mg/dl (8.4-10.2); Carbon Dioxide 25 mmol/L (22.0-30.0); Chloride 102 mmol/L (98-107); Chol/HDL Ratio 4.3 (1-3.5); Cholesterol 177 mg/dl (140-200); Estimated Glomerular Filt Rate 83 ml/min (>60); GFR (African American) 100 ML/MIN (>60); Globulin 2.2 g/dL (1.3-3.2); Glucose 78 mg/dl (74-100); HDL Cholesterol 41 mg/dl (40-60); Potassium 4.5 mmoL/L (3.5-5.1); Sodium 136 mmol/L (136-145); Total Protein,Serum 6.6 g/dl (6.3-8.2); Triglycerides 192 mg/dl (30-150); VLDL Cholesterol 38 mg/dL (0-40)
[2022-09-03 19:09] LABS: Direct LDL Cholesterol 110.37 mg/dL (100-129)
[2022-09-03 19:36] LABS: Creatinine,Urine Random 120 mg/dL (Not Estab.)
[2022-09-03 19:37] LABS: Microalbumin < 6.000 mg/L (0-16.7)
[2022-09-03 22:42] LABS: Hemoglobin A1C 5.5 % (4.0-6.0)
== END ==
PROVIDERS: PCP Emergency Medicine; Visit Provider Emergency Medicine
DX: R73.03 Prediabetes (principal)
CPT/HCPCS: 80053; 80061; 82043; 82570; 83036; 85025

== ENCOUNTER → 2022-12-04 09:30 | Outpatient (CLI) | payer BC, SELFPAY ==
[2022-12-03 22:35] LABS: Amphetamine/Metha Screen,Urine Negative ng/ml (<1000)
[2022-12-03 22:36] LABS: Barbiturates Screen,Urine Negative ng/ml (<200)
[2022-12-03 22:38] LABS: Benzodiazepines Screen,Urine Negative ng/ml (<200)
[2022-12-03 22:39] LABS: Cannabinoid Screen,Urine Positive ng/ml (<50); Cocaine Screen,Urine Negative ng/ml (<300)
[2022-12-03 22:40] LABS: Methadone Screen,Urine Negative ng/ml (<300); Opiate Screen,Urine Negative ng/ml (<300)
[2022-12-03 22:41] LABS: Phencyclidine Screen,Urine Negative ng/ml (<25)
== END ==
PROVIDERS: PCP Emergency Medicine; Visit Provider Emergency Medicine
DX: E11.9 Type 2 diabetes mellitus without complications (principal); Z79.899 Other long term (current) drug therapy
CPT/HCPCS: 80305

== ENCOUNTER → 2023-01-18 14:56 | Outpatient (CLI) | payer BC, SELFPAY ==
[2023-01-18 15:23] LABS: Basophils % 0.5 % (0.1-2.0); Eosinophils # 0.1 K/mm3 (0.0-0.4); Eosinophils % 1.7 % (0.1-12.0); Hematocrit 48.4 % (42.0-52.0); Hemoglobin 16.6 g/dL (14.1-18.0); Lymphocytes # 1.2 K/mm3 (0.7-4.5); Lymphocytes % 20.3 % (10-50); Mean Corpuscular HGB Conc 34.3 g/dL (31.8-35.4); Mean Corpuscular Volume 90.3 fl (80-94); Mean Platelet Volume 8.5 fl (7.4-10.4); Monocytes # 0.4 K/mm3 (0.1-1.0); Monocytes % 6.9 % (1.7-9.3); Neutrophils # 4.1 K/mm3 (1.8-7.8); Neutrophils % 70.6 % (37.0-80.0); Platelet Count 199 K/mm3 (142-424); Red Blood Count 5.36 M/mm3 (4.60-6.20); Red Cell Distribution Width 12.7 % (11.5-17.5); White Blood Count 5.8 K/mm3 (4.8-10.8)
[2023-01-18 16:59] LABS: Alanine Aminotransferase 21 U/L (12-78); Albumin Level 3.9 g/dl (3.5-5.0); Alkaline Phosphatase 110 U/L (38-126); Aspartate Amino Transferase 28 U/L (17-59); Bilirubin,Direct 0.1 mg/dl (0.0-0.4); Bilirubin,Indirect 0.2 mg/dL (0.0-0.9); Bilirubin,Total 0.3 mg/dl (0.2-1.3); Bilirubin,Unconjugated 0.2 mg/dL (0.0-1.1); Blood Urea Nitrogen 18 mg/dl (9-20); Calcium 8.1 mg/dl (8.4-10.2); Carbon Dioxide 28 mmol/L (22.0-30.0); Chloride 102 mmol/L (98-107); Chol/HDL Ratio 5.5 (1-3.5); Cholesterol 155 mg/dl (140-200); Estimated Glomerular Filt Rate 74 ml/min (>60); GFR (African American) 89 ML/MIN (>60); Glucose 92 mg/dl (74-100); HDL Cholesterol 28 mg/dl (40-60); Sodium 137 mmol/L (136-145); Total Protein,Serum 6.3 g/dl (6.3-8.2); Triglycerides 382 mg/dl (30-150); VLDL Cholesterol 76 mg/dL (0-40)
[2023-01-18 17:15] LABS: Free T4 (Free Thyroxine) 1.14 ng/dl (0.78-2.19)
[2023-01-18 22:02] LABS: Hemoglobin A1C 5.3 % (4.0-6.0)
== END ==
PROVIDERS: PCP Emergency Medicine; Visit Provider Nurse Practitioner Family
DX: E78.5 Hyperlipidemia, unspecified (principal); I10 Essential (primary) hypertension; E11.9 Type 2 diabetes mellitus without complications; Z79.85 Long-term (current) use of injectable non-insulin antidiabetic drugs
CPT/HCPCS: 36415; 80048; 80061; 80076; 83036; 84439; 84443; 85025

== ENCOUNTER 2023-02-23 05:17 | Emergency (ER) | payer BC, SELFPAY ==
[2023-02-23 05:25] VITALS: BP 160/89; PULSE 72; RESP 20; TEMP 36.4; O2SAT 99; BMI 28.7
[2023-02-23] MEDS: droPERidol 5MG/2ML VIAL 2.5 MG IV (05:31)
--- NOTE | 2023-02-23 05:33 | ECG_ITS ---
APPROVED REPORT Exam: Resting ECG HR:57 bpm ECG Measurements Heart Rate 57 AXES SC 137 P -1 QRSd 106 QRS 74 QT 416 T 62 QTc 409 Conclusion SINUS BRADYCARDIA WITH SINUS ARRHYTHMIA BORDERLINE ECG UNCONFIRMED REPORT Electronically signed by : Eron Ramos MD 02/23/2023 08:59:34
[2023-02-23] MEDS: KETOROLAC 30MG/ML VIAL 30 MG IV (05:34)
[2023-02-23] MEDS: LACTATED RINGERS 1000ML 1,000 ML 999 ML IV ×2 (05:34→06:30)
[2023-02-23 05:38] VITALS: BP 160/89; PULSE 58; RESP 12; O2SAT 98
[2023-02-23 05:44] LABS: Basophils % 0.3 % (0.1-2.0); Eosinophils # 0.3 K/mm3 (0.0-0.4); Eosinophils % 2.3 % (0.1-12.0); Hematocrit 52.2 % (42.0-52.0); Hemoglobin 17.8 g/dL (14.1-18.0); Lymphocytes # 2.2 K/mm3 (0.7-4.5); Lymphocytes % 15.7 % (10-50); Mean Corpuscular HGB Conc 34.1 g/dL (31.8-35.4); Mean Corpuscular Hemoglobin 30.1 pg (27.0-31.2); Mean Corpuscular Volume 88.3 fl (80-94); Mean Platelet Volume 8.9 fl (7.4-10.4); Monocytes # 0.8 K/mm3 (0.1-1.0); Monocytes % 5.3 % (1.7-9.3); Neutrophils # 10.8 K/mm3 (1.8-7.8); Neutrophils % 76.4 % (37.0-80.0); Platelet Count 314 K/mm3 (142-424); Red Blood Count 5.92 M/mm3 (4.60-6.20); Red Cell Distribution Width 12.7 % (11.5-17.5); White Blood Count 14.1 K/mm3 (4.8-10.8)
--- NOTE | 2023-02-23 05:46 | HMH.EDGENADL ---
Discharge Plan Disposition Patient Disposition: Still a Patient Prescriptions Prescriptions: New promethazine 25 mg tablet 25 mg PO Q6H PRN (Reason: nausea and vomiting) Qty: 20 0RF No Action albuterol sulfate [ProAir HFA] 90 mcg/actuation HFA aerosol inhaler 2 puff INHALATION ONCE PRN (Reason: allergies) sildenafil [Viagra] 50 mg tablet 50 mg PO DAILY PRN (Reason: sexual activity) Qty: 30 0RF Rx Instructions: administer 30 minutes to 4 hours before activity bupropion HCl 150 mg tablet sustained-release 12 hr See Rx Instructions .ROUTE .COMPLEX Qty: 60 2RF Rx Instructions: TAKE ONE TABLET BY MOUTH 2 TIMES A DAY lactulose 10 gram/15 mL solution 10 g PO DAILY Qty: 450 0RF hydrochlorothiazide 25 mg tablet 25 mg PO DAILY Qty: 90 3RF Rx Instructions: TAKE ONE TABLET BY MOUTH ONCE A DAY (DME) blood pressure monitor [Blood Pressure Kit] Kit See Rx Instructions .ROUTE .MEDSUPPLY Qty: 1 0RF Rx Instructions: As directed famotidine 20 mg tablet 20 mg PO BID Qty: 180 0RF mupirocin 2 % ointment 1 applic topical BID Qty: 22 0RF lisinopril 5 mg tablet 5 mg PO DAILY Qty: 90 1RF (DME) blood-glucose meter Kit See Rx Instructions .ROUTE .MEDSUPPLY Qty: 1 0RF Rx Instructions: check Blood Sugar first thing of the morning polyethylene glycol 3350 17 gram/dose powder See Rx Instructions .ROUTE .COMPLEX Qty: 510 0RF Dose Instruction: MIX 1 CAPFUL (17GM) IN AN 8OZ BEVERAGE AND DRINK EVERY DAY Rx Instructions: MIX 1 CAPFUL (17GM) IN AN 8OZ BEVERAGE AND DRINK EVERY DAY Ozempic 2 mg/dose (8 mg/3 mL) pen injector See Rx Instructions .ROUTE .COMPLEX Qty: 3 0RF Dose Instruction: INJECT 2MG SUBCUTANEOUSLY ONCE A WEEK Rx Instructions: INJECT 2MG SUBCUTANEOUSLY ONCE A WEEK (DME) OneTouch Ultra Test Strip See Rx Instructions .ROUTE .COMPLEX Rx Instructions: TEST SUGAR ONCE DAILY OR DIRECTED aspirin [Adult Aspirin Regimen] 81 mg tablet,delayed release (DR/EC) 81 mg PO DAILY metoprolol succinate [Toprol XL] 25 mg tablet extended release 24 hr 50 mg PO DAILY fluticasone propionate 50 mcg/actuation spray,suspension See Rx Instructions .ROUTE .COMPLEX Rx Instructions: USE 1 SPRAY IN EACH NOSTRIL ONCE A DAY Referrals Follow up/Referrals: Elmer Cleary MD [Primary Care Provider] - See instructions Activity Restrictions/Add. Instructions Additional Instructions/Restrictions: Please follow-up with your primary care provider. Please return to the emergency department if you develop any new or worsening symptoms or become concerned for your health. Clinical Impressions Clinical Impression: Intractable nausea and vomiting Instructions Patient Instructions: DI for Diarrhea and Traveler's Diarrhea -- Adult, DI for Diarrhea and Traveler's Diarrhea -- Child, DI for Nausea -- Adult, DI for Nausea -- Child Discharge ED Provider: Dima [facility]ands [facility] HPI General Chief complaint: Nausea/Vomiting/Diarrhea Stated complaint: vomiting Time Seen by Provider: 02/23/23 05:20 Mode of Arrival: Ambulatory Source of Information: Patient Limitations: No Limitations Description of Symptoms (Recalled from ER Triage Doc. by RN): pt states he has been off his ozempic for 3-4wks. Yesterday he took his normal 2mg sq ozempic. pt c/o N/V since then. History of Present Illness HPI narrative: 42-year-old male history of diabetes, hypertension presents with worsening nausea and vomiting over the last day or so. He was previously on Ozempic but had to discontinue it for about a month due to shoulder surgery. He restarted it at 2 mg 2 days ago. Since then he has had worsening nausea and vomiting. He reports generalized abdominal discomfort associated with vomiting but no specific abdominal pain. He reports this feels like the last time he increased his Ozempic dosing. He has not been able to keep any food or drinks down since approximately 2:00 yesterday afternoon. Not improved with Zofran at home. Related Data Home Medications Medication Instructions Recorded Confirmed albuterol sulfate 90 mcg/actuation 2 puff inhalation ONCE PRN 06/24/21 01/18/23 aerosol inhaler (ProAir HFA) allergies aspirin 81 mg tablet,delayed 81 mg PO DAILY . 05/25/22 01/18/23 release (Adult Aspirin Regimen) blood sugar diagnostic (OneTouch 05/25/22 01/18/23 Ultra Test strips) fluticasone propionate 50 See Rx Instructions .Route 03/28/23 11/21/23 mcg/actuation nasal .COMPLEX allergies spray,suspension metoprolol succinate 25 mg 50 mg PO DAILY bp 05/25/22 01/18/23 tablet,extended release 24 hr (Toprol XL) Previous Rx's Medication Instructions Recorded sildenafil 50 mg tablet (Viagra) 50 mg PO DAILY PRN sexual activity 06/24/21 #30 tabs blood-glucose meter #1 ea 10/06/21 hydrochlorothiazide 25 mg tablet 25 mg PO DAILY Hypertension #90 04/13/22 tabs bupropion HCl 150 mg tablet,12 hr See Rx Instructions .Route 06/09/22 sustained-release .COMPLEX . #60 ea lactulose 10 gram/15 mL oral 10 g (15 mL) PO DAILY #450 mL 06/09/22 solution polyethylene glycol 3350 17 See Rx Instructions .Route 10/26/22 gram/dose oral powder .COMPLEX #510 grams blood pressure monitor (Blood #1 ea 12/03/22 Pressure Kit) famotidine 20 mg tablet 20 mg PO BID #180 tabs 12/03/22 mupirocin 2 % topical ointment 1 applic topical BID . #22 grams 12/03/22 lisinopril 5 mg tablet 5 mg PO DAILY Hypertension #90 tabs 01/18/23 semaglutide 2 mg/dose (8 mg/3 mL) See Rx Instructions .Route 02/17/23 subcutaneous pen injector (Ozempic) .COMPLEX #3 mL promethazine 25 mg tablet 25 mg PO Q6H PRN nausea and 02/23/23 vomiting #20 tabs Allergies Allergy/AdvReac Type Severity Reaction Status Date / Time No Known Allergies Allergy Verified 02/23/23 05:31 [facility] Disclaimer: The information contained in this section may have been updated after the patient was seen, as this information can be updated by other users. Medical History (Updated 02/23/23 @ 06:33 by Dima Sands MD) Abnormal EKG Abnormal stress test Chest pain Chronic eustachian tube dysfunction Cough Deviated nasal septum Diabetes Diverticulitis Erectile dysfunction Family history of coronary artery disease Fatigue Gastroenteritis Hearing Loss History of diverticulitis History of femur fracture HLD (hyperlipidemia) HTN (hypertension) MEDINA (obstructive sleep apnea) Prediabetes SOB (shortness of breath) Tinnitus Tympanosclerosis Ventral hernia Surgical History History of colon resection History of colonoscopy History of knee surgery History of mandibular surgery History of placement of ear tubes History of shoulder surgery Family History Other Family history of CVA Family history of heart disease Social History Smoking Status: Current every day smoker tobacco type: cigarettes packs per day: 1 second hand exposure: Yes alcohol intake: never counseling provided: none substance use type: marijuana current occupational status: employed and other Travel in the last 8 weeks: None household members: family housing: house current occupation: [employer] current occupational exposures/hazards: No caffeine: Yes ROS Obtained: Yes All systems reviewed & no additional complaints except as documented Physical Exam General General appearance: alert and in no apparent distress Head Head exam: atraumatic and normocephalic Eye Eye exam: Present normal appearance, PERRL and EOMI ENT ENT exam: Present normal oropharynx and normal external ear exam Neck Neck exam: Present normal inspection and full ROM Chest Chest inspection: Present normal inspection and symmetric chest wall rise; Absent tenderness Respiratory Respiratory exam: Present normal lung sounds bilaterally; Absent respiratory distress Cardiovascular Cardiovascular exam: Present regular rate and normal rhythm Abdominal Exam Abdominal exam: Present soft; Absent distention, tenderness or guarding Extremities Exam Extremities exam: Present normal inspection; Absent edema or joint swelling Back Exam Back exam: Present normal inspection; Absent tenderness Neurological Exam Neurological exam: Present alert and oriented X3; Absent motor sensory deficit Psychiatric Psychiatric exam: Present normal affect and normal mood Skin Skin exam: Present warm, dry and normal color Lymphatic Lymphatic Findings: no adenopathy Medical Decision Making Medical Records Medical records reviewed: Yes I reviewed the patient's medical records. Sam Inquiry Pt receiving controlled substance: No Sam was queried for this patient: No Vital Signs: 02/23/23 05:25 02/23/23 05:38 Temperature 97.6 F Temperature Source Oral Pulse Rate 58 L Pulse Rate [Left] 72 Respiratory Rate 20 12 Blood Pressure 160/89 H Blood Pressure [Right Arm] 160/89 H Blood Pressure Mean 104 Blood Pressure Mean [Right Arm] 112 Blood Pressure Source [Right Arm] Automatic Cuff Blood Pressure Position [Right Arm] Sitting 02 Sat by Pulse Oximetry 99 98 Oxygen Delivery Method Room Air Lab Data Lab results reviewed: Yes I reviewed the patient's lab results. Lab Results 02/23/23 05:28: WBC 14.1 H, RBC 5.92, Hgb 17.8, Hct 52.2 H, MCV 88.3, MCH 30.1, MCHC 34.1, RDW 12.7, Plt Count 314, MPV 8.9, Neut % (Auto) 76.4, Lymph % (Auto) 15.7, Kane % (Auto) 5.3, Eos % (Auto) 2.3, Baso % (Auto) 0.3, Neut # (Auto) 10.8 H, Lymph # (Auto) 2.2, Kane # (Auto) 0.8, Eos # (Auto) 0.3, Baso # (Auto) 0.0, Sodium 135 L, Potassium 3.9, Chloride 104, Carbon Dioxide 24, Anion Gap 10.9, BUN 13, Creatinine 0.80, Estimated Creat Clear 156, Estimated GFR 107, Est GFR ( Amer) 129, Glucose 108 H, Calcium 9.4, Magnesium 2.0, Total Bilirubin 1.4 H, AST 36, ALT 31, Alkaline Phosphatase 93, Total Protein 8.1 D, Albumin 4.7, Globulin 3.4 H, Albumin/Globulin Ratio 1.4, Lipase 126 02/23/23 05:28 02/23/23 05:28 Orders (Tests/Meds): ED MEDICATIONS Generic Name Dose Route Start Last Admin Trade Name Freq PRN Reason Stop Dose Admin Lactated Ringer's 1,000 mls @ 999 mls/hr 02/23/23 05:30 02/23/23 06:30 Lactated Ringer's 1000 Ml Bag IV 02/23/23 07:30 999 mls/hr .Q1H1M GRACY Administration Discontinued Medications Generic Name Dose Route Start Last Admin Trade Name Freq PRN Reason Stop Dose Admin Droperidol 2.5 mg 02/23/23 05:24 02/23/23 05:31 Droperidol 5mg/2ml Vial IV 02/23/23 05:25 2.5 mg ONCE ONE Administration Ketorolac Tromethamine 30 mg 02/23/23 05:24 02/23/23 05:34 Ketorolac 30mg/Ml Vial IV 02/23/23 05:25 30 mg ONCE ONE Administration ORDERS Category Date Time Status CBC w/Auto Diff [Complete Blood Count Auto Diff] Stat Lab 02/23/23 05:28 Completed CMP [Comprehensive Metabolic Panel] Stat Lab 02/23/23 05:28 Completed Lipase Stat Lab 02/23/23 05:28 Completed Magnesium Stat Lab 02/23/23 05:28 Completed ECG Data Tracing #1: I reviewed this ECG and interpreted as documented below: Sinus rhythm, rate of 57, bradycardic, no concerning ST changes noted. ECG initial impression date: 02/23/23 ECG initial impression time: 06:01 Medical Decision Narrative: 42-year-old male, recently restarted on Ozempic at 2 mg after 1 month hiatus due to shoulder surgery, presents with nausea vomiting and p.o. intolerance. Not improved with Zofran at home.. History was obtained via conversation with patient, family, chart review. On arrival, patient is [afebrile, hemodynamically stable, satting appropriately, alert, oriented x4, GCS 15], moving all extremities spontaneously. Full physical exam performed and significant for benign abdominal exam, dry mucous membranes, frequent retching Differential includes but is not limited to medication related nausea and vomiting secondary to Ozempic usage, pancreatitis, gastroenteritis, cholecystitis, bowel obstruction. Patient was given 2 L IV fluids, 2 mg Toradol, 2.5 mg of droperidol for symptomatic management and correction of underlying abnormalities. Workup initiated including CBC CMP lipase mag. Patient placed on radiographer cardiac catheterization. At 545 patient was placed in observation status for serial monitoring, rehydration and assessment of the effectiveness of IV antiemetic therapy. . On re-evaluation, patient is sleeping comfortably. On my interpretation of radiographer cardiac catheterization patient is consistently mildly bradycardic with rates in the 50s in sinus rhythm. Laboratory workup independently interpreted by me and significant for mild leukocytosis with white count of 14, minimal hyponatremia, minimal hyperbilirubinemia with bilirubin 1.4. LFTs normal. Lipase normal. CT abdomen pelvis was considered was considered to assess for gallbladder/biliary pathology, but deemed unnecessary due to benign exam. Ozempic is also known to raise bilirubin levels. Given patient history, exam and workup, patient's presentation most likely represents nausea and vomiting related to reinitiation of Ozempic at high doses. At this time care was handed off to oncoming physician in observation status pending continued reassessment and p.o. trial. Procedures Risk/Benefits of Procedure(s) Were Explained: Yes Critical Care Critical Care Time Critical Care Time: No
[2023-02-23 05:48] LABS: Alanine Aminotransferase 31 U/L (12-78); Albumin Level 4.7 g/dl (3.5-5.0); Albumin/Globulin Ratio 1.4 (1.1-1.8); Alkaline Phosphatase 93 U/L (38-126); Anion Gap 10.9 mEq/L (5-15); Aspartate Amino Transferase 36 U/L (17-59); Bilirubin,Total 1.4 mg/dl (0.2-1.3); Blood Urea Nitrogen 13 mg/dl (9-20); Calcium 9.4 mg/dl (8.4-10.2); Carbon Dioxide 24 mmol/L (22.0-30.0); Chloride 104 mmol/L (98-107); Creatinine Clearance Estimated 156 mL/min (50-200); Estimated Glomerular Filt Rate 107 ml/min (>60); GFR (African American) 129 ML/MIN (>60); Globulin 3.4 g/dL (1.3-3.2); Glucose 108 mg/dl (74-100); Lipase 126 U/L (23-300); Potassium 3.9 mmoL/L (3.5-5.1); Sodium 135 mmol/L (136-145); Total Protein,Serum 8.1 g/dl (6.3-8.2)
[2023-02-23 06:15] VITALS: BP 163/90; PULSE 62; RESP 20; O2SAT 97
[2023-02-23 06:30] VITALS: BP 175/94; PULSE 52; RESP 14; O2SAT 98
[2023-02-23 06:46] VITALS: BP 162/83; PULSE 53; RESP 16; O2SAT 98
--- NOTE | 2023-02-23 07:20 | PC.NURSE ---
Patient tolerating PO intake.
[2023-02-23] MEDS: hydroCHLOROthiazide 25MG TABLET 25 MG PO (07:43)
[2023-02-23] MEDS: LISINOPRIL 5MG TABLET 5 MG PO (07:44)
[2023-02-23 07:51] VITALS: BP 161/90; PULSE 62; RESP 18; TEMP 36.4; O2SAT 98
== END 2023-02-23 07:55 | disposition home or self-care (01) ==
PROVIDERS: Emergency Provider Emergency Medicine; PCP Emergency Medicine
DX: R11.2 Nausea with vomiting, unspecified (principal); E11.9 Type 2 diabetes mellitus without complications; I10 Essential (primary) hypertension; E78.5 Hyperlipidemia, unspecified; G47.33 Obstructive sleep apnea (adult) (pediatric); F17.210 Nicotine dependence, cigarettes, uncomplicated; R00.1 Bradycardia, unspecified
CPT/HCPCS: 80053; 83690; 83735; 85025; 93005; 96361; 96374; 96375; 99285; J1790

== ENCOUNTER 2023-05-20 14:00 | Outpatient (RCR) | payer BC, SELFPAY | END 2023-05-20 15:00 | disposition home or self-care (01) | LOC: OT 14:00 | PROVIDERS: Visit Provider Orthopaedic Surgery Adult Reconstructive Orthopaedic Surgery | DX: M25.512 Pain in left shoulder (principal); M75.122 Complete rotator cuff tear or rupture of left shoulder, not specified as traumatic | CPT/HCPCS: 97010; 97014; 97110; 97140; 97166; G0283 ==

== ENCOUNTER 2023-11-01 23:07 | Emergency (ER) | payer SELFPAY ==
[2023-11-01 23:08] VITALS: BP 173/98; PULSE 96; RESP 20; TEMP 36.6; O2SAT 99; BMI 28.7
--- NOTE | 2023-11-01 23:13 | ED_ITS ---
Discharge Plan Disposition Patient Disposition: Home, Self-Care Prescriptions Prescriptions: No Action albuterol sulfate [ProAir HFA] 90 mcg/actuation HFA aerosol inhaler 2 puff INHALATION ONCE PRN (Reason: allergies) (DME) blood pressure monitor [Blood Pressure Kit] Kit See Rx Instructions .ROUTE .MEDSUPPLY Qty: 1 0RF Rx Instructions: As directed famotidine 20 mg tablet 20 mg PO BID Qty: 180 0RF lisinopril 5 mg tablet 5 mg PO DAILY Qty: 90 1RF oxycodone-acetaminophen 5-325 mg tablet 1 tab PO BID PRN docusate sodium [Colace] 100 mg capsule 100 mg PO DAILY Qty: 30 0RF bupropion HCl 150 mg tablet sustained-release 12 hr See Rx Instructions .ROUTE .COMPLEX Qty: 60 2RF Rx Instructions: TAKE ONE TABLET BY MOUTH 2 TIMES A DAY aspirin [Adult Aspirin Regimen] 81 mg tablet,delayed release (DR/EC) 81 mg PO DAILY Qty: 30 6RF (DME) blood-glucose meter Kit See Rx Instructions .ROUTE .MEDSUPPLY Qty: 1 0RF Rx Instructions: check Blood Sugar first thing of the morning polyethylene glycol 3350 17 gram/dose powder See Rx Instructions .ROUTE .COMPLEX Qty: 510 0RF Dose Instruction: MIX 1 CAPFUL (17GM) IN AN 8OZ BEVERAGE AND DRINK EVERY DAY Rx Instructions: MIX 1 CAPFUL (17GM) IN AN 8OZ BEVERAGE AND DRINK EVERY DAY Ozempic 2 mg/dose (8 mg/3 mL) pen injector See Rx Instructions .ROUTE .COMPLEX Qty: 3 4RF Dose Instruction: INJECT 2MG SUBCUTANEOUSLY ONCE A WEEK Rx Instructions: INJECT 2MG SUBCUTANEOUSLY ONCE A WEEK hydrochlorothiazide 25 mg tablet See Rx Instructions .ROUTE .COMPLEX Qty: 90 3RF Dose Instruction: TAKE ONE TABLET BY MOUTH ONCE A DAY FOR HYPERTENSION Rx Instructions: TAKE ONE TABLET BY MOUTH ONCE A DAY FOR HYPERTENSION metoprolol succinate [Toprol XL] 25 mg tablet extended release 24 hr 50 mg PO DAILY Qty: 90 3RF sildenafil [Viagra] 50 mg tablet 50 mg PO DAILY PRN (Reason: sexual activity) Qty: 30 0RF Rx Instructions: administer 30 minutes to 4 hours before activity (DME) OneTouch Ultra Test Strip See Rx Instructions .ROUTE .COMPLEX Rx Instructions: TEST SUGAR ONCE DAILY OR DIRECTED fluticasone propionate 50 mcg/actuation spray,suspension See Rx Instructions .ROUTE .COMPLEX Rx Instructions: USE 1 SPRAY IN EACH NOSTRIL ONCE A DAY Referrals Follow up/Referrals: Emmie Frazier APRN [Primary Care Provider] - See instructions Activity Restrictions/Add. Instructions Additional Instructions/Restrictions: Please follow-up with your primary care provider. Please return to the emergency department if you develop any new or worsening symptoms or become concerned for your health. Clinical Impressions Clinical Impression: Encounter for medical assessment Print Language Print Language: Kyrgyz Discharge ED Provider: Dima [facility] HPI General Chief complaint: Medical Clearance Stated complaint: medical clearance Time Seen by Provider: 11/01/23 23:13 History of Present Illness HPI narrative: 43-year-old male with history of hypertension, diabetes presents in police custody for medical clearance. He admits to smoking marijuana earlier today. He denies any current symptoms including headache chest pain abdominal pain shortness of breath dizziness etc. Denies any trauma Related Data Home Medications ?Medication ?Instructions ?Recorded ?Confirmed albuterol sulfate 90 mcg/actuation 2 puff inhalation ONCE PRN 06/24/21 03/09/23 aerosol inhaler (ProAir HFA) allergies blood sugar diagnostic (OneTouch 05/25/22 03/09/23 Ultra Test strips) fluticasone propionate 50 See Rx Instructions .Route 05/25/22 03/09/23 mcg/actuation nasal .COMPLEX allergies spray,suspension oxycodone-acetaminophen 5 mg-325 1 tab PO BID PRN 03/09/23 03/09/23 mg tablet Previous Rx's ?Medication ?Instructions ?Recorded blood-glucose meter #1 ea 10/06/21 polyethylene glycol 3350 17 See Rx Instructions .Route 10/26/22 gram/dose oral powder .COMPLEX #510 grams blood pressure monitor (Blood #1 ea 12/03/22 Pressure Kit) famotidine 20 mg tablet 20 mg PO BID #180 tabs 12/03/22 lisinopril 5 mg tablet 5 mg PO DAILY Hypertension #90 tabs 01/18/23 aspirin 81 mg tablet,delayed 81 mg PO DAILY . #30 tabs 03/09/23 release (Adult Aspirin Regimen) bupropion HCl 150 mg tablet,12 hr See Rx Instructions .Route 03/09/23 sustained-release .COMPLEX . #60 ea docusate sodium 100 mg capsule 100 mg PO DAILY #30 caps 03/09/23 (Colace) semaglutide 2 mg/dose (8 mg/3 mL) See Rx Instructions .Route 05/25/23 subcutaneous pen injector (Ozempic) .COMPLEX #3 mL hydrochlorothiazide 25 mg tablet See Rx Instructions .Route 06/06/23 .COMPLEX #90 tabs metoprolol succinate 25 mg 50 mg (2 x 25 mg) PO DAILY bp #90 07/22/23 tablet,extended release 24 hr tabs (Toprol XL) sildenafil 50 mg tablet (Viagra) 50 mg PO DAILY PRN sexual activity 07/22/23 #30 tabs Allergies Allergy/AdvReac Type Severity Reaction Status Date / Time No Known Allergies Allergy Verified 03/09/23 15:18 [facility] Disclaimer: The information contained in this section may have been updated after the patient was seen, as this information can be updated by other users. Medical History (Updated 11/01/23 @ 23:13 by Dima Sands MD) Intractable nausea and vomiting Fatigue Vomiting History of femur fracture Diverticulitis Diabetes HTN (hypertension) Chronic eustachian tube dysfunction Eustachian tube dysfunction Deviated nasal septum Tympanosclerosis Tinnitus Hearing Loss BMI 38.0-38.9,adult MEDINA (obstructive sleep apnea) Bronchitis Sinusitis Need for Tdap vaccination Laceration of left thumb without complication Erectile dysfunction Prediabetes History of diverticulitis Abdominal pain Ventral hernia Gastroenteritis Abnormal stress test Tachycardia Family history of coronary artery disease Abnormal EKG Cough SOB (shortness of breath) Chest pain HLD (hyperlipidemia) Surgical History History of placement of ear tubes History of mandibular surgery History of shoulder surgery History of colon resection History of knee surgery History of colonoscopy Family History Other Family history of CVA Family history of heart disease Social History Smoking Status: Current every day smoker tobacco type: cigarettes packs per day: 1 second hand exposure: Yes alcohol intake: never counseling provided: none substance use type: marijuana current occupational status: employed and other Travel in the last 8 weeks: None household members: family housing: house current occupation: [employer] current occupational exposures/hazards: No caffeine: Yes ROS Obtained: Yes All systems reviewed & no additional complaints except as documented Physical Exam General General appearance: alert and in no apparent distress Head Head exam: atraumatic and normocephalic Eye Eye exam: Present normal appearance, PERRL and EOMI ENT ENT exam: Present normal oropharynx and normal external ear exam Neck Neck exam: Present normal inspection and full ROM Chest Chest inspection: Present normal inspection and symmetric chest wall rise; Absent tenderness Respiratory Respiratory exam: Present normal lung sounds bilaterally; Absent respiratory distress Cardiovascular Cardiovascular exam: Present regular rate and normal rhythm Abdominal Exam Abdominal exam: Present soft; Absent distention, tenderness or guarding Extremities Exam Extremities exam: Present normal inspection; Absent edema or joint swelling Back Exam Back exam: Present normal inspection; Absent tenderness Neurological Exam Neurological exam: Present alert and oriented X3; Absent motor sensory deficit Psychiatric Psychiatric exam: Present normal affect and normal mood Skin Skin exam: Present warm, dry and normal color Lymphatic Lymphatic Findings: no adenopathy Medical Decision Making Medical Records Medical records reviewed: Yes I reviewed the patient's medical records. Sam Inquiry Pt receiving controlled substance: No Sam was queried for this patient: No Vital Signs: 11/01/23 23:08 11/01/23 23:14 Temperature 97.9 F 97.9 F Temperature Source Oral Oral Pulse Rate 90 Pulse Rate [Right Radial] 96 H Respiratory Rate 20 20 Blood Pressure 178/98 H Blood Pressure [Left Arm] 173/98 H Blood Pressure Mean [Left Arm] 123 Blood Pressure Source Automatic Cuff Blood Pressure Source [Left Arm] Automatic Cuff Blood Pressure Position [Left Arm] Sitting 02 Sat by Pulse Oximetry 99 Oxygen Delivery Method Room Air Room Air Lab Data Lab results reviewed: Yes I reviewed the patient's lab results. Medical Decision Narrative: 43-year-old male without significant past medical history presents in police custody for medical clearance.. History was obtained via interactive discussion with patient, law enforcement. On arrival, patient is [afebrile, hemodynamically stable, satting appropriately, alert, oriented x4, GCS 15], moving all extremities spontaneously. Full physical exam performed and significant for no significant physical exam abilities. Differential includes but is not limited to intoxication, withdrawal, trauma. Low concern for emergent pathology at this time. Patient discharged in stable condition, return precautions given. Procedures Risk/Benefits of Procedure(s) Were Explained: Yes Critical Care Critical Care Time Critical Care Time: No
[2023-11-01 23:14] VITALS: BP 178/98; PULSE 90; RESP 20; TEMP 36.6; O2SAT 99
== END 2023-11-01 23:17 | disposition home or self-care (01) ==
LOC: ER 23:14
PROVIDERS: Emergency Provider Emergency Medicine; PCP Family Medicine
DX: F12.90 Cannabis use, unspecified, uncomplicated (principal); E11.9 Type 2 diabetes mellitus without complications; I10 Essential (primary) hypertension; E78.5 Hyperlipidemia, unspecified; F17.210 Nicotine dependence, cigarettes, uncomplicated
CPT/HCPCS: 99281